=== PATIENT | male | born 1935 | race African-American/Black ===

== ENCOUNTER → 2017-06-14 | Outpatient (CLI) | payer OTHER, MEDICAID ==
[2016-08-07 11:13] VITALS: BP 124/76
--- NOTE | 2017-06-15 11:06 | US ---
HISTORY: Groin pain and swelling Study: Testicular sonogram Comparison: None Technique: Multiple grayscale sonographic images were obtained. Limited Doppler evaluation was perfor med. Findings: The right testicle measured 2.56 x 2.54 x 2.5 cm. No intratesticular masses are identified. The epidi dymis is normal. No hydrocele is identified. The left testicle measured 3.2 x 2.2 x 2.1 cm. No intrat esticular masses are identified. The epididymis was normal. No hydrocele is present. There is soft ti ssue prominence in the superior scrotum above the testes bilaterally. This could represent edema or l ess likely but not impossible herniated bowel or fat. CT is recommended in order to evaluate for ingu inal hernias as a cause of the patient's symptoms. IMPRESSION: No evidence for testicular torsion, mass, or epididymitis Questionable edematous soft tissue, fat, or bowel in the superior aspect of the scrotal sac bilateral ly. Hernias cannot be entirely excluded on the basis of this examination. CT would be of further diag nostic value in determining if hernia may be the cause of the patient's groin pain. Reported By:
== END | disposition home or self-care (01) ==
LOC: RAD 12:10
PROVIDERS: ATTEND Internal Medicine
DX: R10.30 Lower abdominal pain, unspecified (principal); N50.89 Other specified disorders of the male genital organs
CPT/HCPCS: 76870

== ENCOUNTER → 2017-06-17 | Outpatient (CLI) | payer OTHER, MEDICAID ==
[2016-08-07 11:13] VITALS: BP 124/76
--- NOTE | 2017-06-17 15:20 | CT ---
HISTORY: Groin pain, abnormal testicular ultrasound on 06/14/2017 Study: CT abdomen and pelvis without IV contrast Comparison: 05/19/2016 Technique: Multiple axial images of the abdomen and pelvis were obtained from the lung bases to the pubic symphy sis without the administration of IV contrast. Oral contrast materials were given. Coronal and sagitt al images are also reviewed. Dose reduction techniques utilized automatic exposure control. Findings: There are bilateral pleural effusions, larger on the right side. Some compressive atelectasis is pres ent in both lung bases. 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 There are heavy calcifications present within the left coronary and right coronary art eries. There is cardiomegaly. Changes of subcutaneous edema present involving the lower chest, abdome n and pelvic valera. The liver, spleen, right kidney and adrenal glands are unremarkable in their CT a ppearance. The pancreas is exceedingly thickened. The gallbladder is unremarkable in its CT appearanc e. There is a simple cyst in the upper pole of the left kidney, unchanged from prior studies. No vinicio d mass, stone or hydronephrosis is seen. There are changes of mesenteric and retroperitoneal adenopat hy. These findings appear to have developed since the patient's prior study. No evidence of ascites o r free intraperitoneal air is seen. The mesentery appears edematous, but this may be a product of the generalized anasarca process.. There is a 3.3 cm soft tissue density present in the left groin with a low-density, likely fluid center. This is much smaller than on prior studies. This may be a small residual of the prior abscess in this region. Mixed fatty and fluid densities are present in the lowe r flank regions bilaterally. These appear to represent amorphous collections related to the patient's edema.. The urinary bladder is grossly unremarkable. There is prostatic enlargement. Multilevel deg enerative changes are present involving the lumbar spine. The scrotum appears markedly edematous. IMPRESSION: There are findings of anasarca with bilateral pleural effusions. There are changes of subcutaneous ed mely involving the lower chest, abdomen and pelvic valera. Mixed edematous and fatty changes are presen t in the lower flank regions bilaterally. Compressive atelectasis in the lung bases. Small ,solid mass formation present involving the left groin region. This displays a central fluid co re. This measures about 3.3 cm in diameter and is significantly smaller than on the patient's prior s tudies. This may be all that is left of the abscess seen in the region on prior studies. Markedly edematous scrotum. Reported By:
== END | disposition home or self-care (01) ==
LOC: RAD 08:54
PROVIDERS: ATTEND Internal Medicine
DX: R10.30 Lower abdominal pain, unspecified (principal); J18.2 Hypostatic pneumonia, unspecified organism; J91.8 Pleural effusion in other conditions classified elsewhere; J90 Pleural effusion, not elsewhere classified; J98.11 Atelectasis; R22.9 Localized swelling, mass and lump, unspecified; N50.89 Other specified disorders of the male genital organs; R60.0 Localized edema
CPT/HCPCS: 74176

== ENCOUNTER 2017-06-18 13:36 | Inpatient (IN) | payer OTHER, MEDICAID ==
[2017-06-18] MEDS ORDERED: HumuLIN R SUBCUT PRN (13:40)
[2017-06-18 16:20] VITALS: BMI 27.2
[2017-06-18 17:37] LABS: BASOPHILS # (AUTO) 0.1 X10^3/uL (0.0-0.1); BASOPHILS % (AUTO) 0.8 % (0.2-1.0); EOSINOPHILS # (AUTO) 0.2 x10^3/uL (0.0-0.2); EOSINOPHILS % (AUTO) 2.4 % (0.9-2.9); HEMATOCRIT 32.5 % (42.0-54.0); HEMOGLOBIN 10.9 g/dL (13.5-18.0); LYMPHOCYTES # (AUTO) 1.4 X10^3/uL (1.3-2.9); LYMPHOCYTES % (AUTO) 20.6 % (21.0-51.0); MEAN CORPUSCULAR HEMOGLOBIN 31.7 pg (27.0-34.0); MEAN CORPUSCULAR HGB CONC 33.6 g/dL (33.0-35.0); MEAN CORPUSCULAR VOLUME 94.3 fL (80.0-100.0); MONOCYTES # (AUTO) 0.9 x10^3/uL (0.3-0.8); MONOCYTES % (AUTO) 14.1 % (0.0-13.0); NEUTROPHILS # (AUTO) 4.1 x10^3/uL (2.2-4.8); NEUTROPHILS % (AUTO) 62.1 % (42.0-75.0); PLATELET COUNT 185 X10^3/uL (150.0-450.0); RED BLOOD COUNT 3.45 X10^6/uL (4.7-6.0); RED CELL DISTRIBUTION WIDTH 14.2 % (11.6-16.5); WHITE BLOOD COUNT 6.6 X10^3/uL (3.6-10.0)
[2017-06-18 17:51] LABS: ALBUMIN 2.7 g/dL (3.4-5.0); CALCIUM 8.7 mg/dL (8.5-10.1); CARBON DIOXIDE 24.2 mmol/L (21-32); COR CA(FOR HYPOALB) 9.7 mg/dL (8.5-10.1); CREATININE 2.5 mg/dL (0.70-1.30); TOTAL PROTEIN 6.8 g/dL (6.4-8.2)
[2017-06-18] MEDS: LASIX IVP SCH (22:47)
[2017-06-19 06:09] LABS: BASOPHILS % (AUTO) 0.8 % (0.2-1.0); EOSINOPHILS # (AUTO) 0.1 x10^3/uL (0.0-0.2); EOSINOPHILS % (AUTO) 2.7 % (0.9-2.9); HEMOGLOBIN 10.9 g/dL (13.5-18.0); LYMPHOCYTES # (AUTO) 1.2 X10^3/uL (1.3-2.9); LYMPHOCYTES % (AUTO) 22.7 % (21.0-51.0); MEAN CORPUSCULAR HEMOGLOBIN 32.2 pg (27.0-34.0); MEAN CORPUSCULAR HGB CONC 33.9 g/dL (33.0-35.0); MEAN PLATELET VOLUME 7.6 fL (7.4-11.0); MONOCYTES # (AUTO) 0.7 x10^3/uL (0.3-0.8); MONOCYTES % (AUTO) 12.7 % (0.0-13.0); NEUTROPHILS # (AUTO) 3.2 x10^3/uL (2.2-4.8); NEUTROPHILS % (AUTO) 61.1 % (42.0-75.0); PLATELET COUNT 180 X10^3/uL (150.0-450.0); RED BLOOD COUNT 3.37 X10^6/uL (4.7-6.0); RED CELL DISTRIBUTION WIDTH 13.9 % (11.6-16.5); WHITE BLOOD COUNT 5.2 X10^3/uL (3.6-10.0)
[2017-06-19 06:21] LABS: ALANINE AMINOTRANSFERASE 22 Units/L (12-78); ALBUMIN 2.5 g/dL (3.4-5.0); ALKALINE PHOSPHATASE 65 Units/L (46-116); ASPARTATE AMINO TRANSFERASE 23 Units/L (15-37); BLOOD UREA NITROGEN 52 mg/dL (7-18); CALCIUM 8.9 mg/dL (8.5-10.1); CARBON DIOXIDE 23.4 mmol/L (21-32); CHLORIDE 112 mmol/L (98-107); COR CA(FOR HYPOALB) 10.1 mg/dL (8.5-10.1); CREATININE 2.31 mg/dL (0.70-1.30); SODIUM 145 mmol/L (136-145); TOTAL PROTEIN 6.4 g/dL (6.4-8.2); eGFR BLACK RACES 35 (>60); eGFR NON BLACK RACES 29 (>60)
[2017-06-19] MEDS: ALBUMIN HUMAN 25%- 100ML 100 ML IV SCH (09:24)
[2017-06-19] MEDS: LASIX IVP SCH ×2 (09:25→20:42)
[2017-06-19] MEDS ORDERED: COLACE CAP 100 MG PO PRN (22:38)
[2017-06-20 05:37] LABS: ALANINE AMINOTRANSFERASE 22 Units/L (12-78); ALBUMIN 2.7 g/dL (3.4-5.0); ALKALINE PHOSPHATASE 60 Units/L (46-116); ASPARTATE AMINO TRANSFERASE 22 Units/L (15-37); BLOOD UREA NITROGEN 46 mg/dL (7-18); CALCIUM 8.7 mg/dL (8.5-10.1); CHLORIDE 111 mmol/L (98-107); COR CA(FOR HYPOALB) 9.7 mg/dL (8.5-10.1); CREATININE 2.21 mg/dL (0.70-1.30); SODIUM 146 mmol/L (136-145); TOTAL PROTEIN 6.3 g/dL (6.4-8.2); eGFR BLACK RACES 37 (>60); eGFR NON BLACK RACES 30 (>60)
[2017-06-20 05:45] LABS: BASOPHILS # (AUTO) 0.1 X10^3/uL (0.0-0.1); EOSINOPHILS # (AUTO) 0.2 x10^3/uL (0.0-0.2); EOSINOPHILS % (AUTO) 3.2 % (0.9-2.9); HEMATOCRIT 31.4 % (42.0-54.0); HEMOGLOBIN 10.9 g/dL (13.5-18.0); LYMPHOCYTES # (AUTO) 1.1 X10^3/uL (1.3-2.9); LYMPHOCYTES % (AUTO) 20.8 % (21.0-51.0); MEAN CORPUSCULAR HEMOGLOBIN 32.8 pg (27.0-34.0); MEAN CORPUSCULAR HGB CONC 34.9 g/dL (33.0-35.0); MEAN PLATELET VOLUME 7.5 fL (7.4-11.0); MONOCYTES # (AUTO) 0.7 x10^3/uL (0.3-0.8); MONOCYTES % (AUTO) 13.3 % (0.0-13.0); NEUTROPHILS # (AUTO) 3.3 x10^3/uL (2.2-4.8); NEUTROPHILS % (AUTO) 61.7 % (42.0-75.0); PLATELET COUNT 168 X10^3/uL (150.0-450.0); RED BLOOD COUNT 3.34 X10^6/uL (4.7-6.0); RED CELL DISTRIBUTION WIDTH 13.5 % (11.6-16.5); WHITE BLOOD COUNT 5.4 X10^3/uL (3.6-10.0)
[2017-06-20] MEDS: VOLTAREN 1 % GEL MULTI DOSE TUBE TOP SCH ×3 (05:54→23:11)
[2017-06-20] MEDS ORDERED: GLUCOPHAGE PO SCH ×2 (07:00→10:00)
[2017-06-20] MEDS ORDERED: PEPCID TAB 20 MG PO SCH ×2 (09:00→21:00)
[2017-06-20] MEDS ORDERED: COLACE CAP 100 MG PO PRN (09:13)
[2017-06-20] MEDS ORDERED: ULTRAM PO PRN (09:13)
[2017-06-20] MEDS ORDERED: ZESTRIL TAB 5 MG PO SCH (09:15)
[2017-06-20] MEDS: ALBUMIN HUMAN 25%- 100ML 100 ML IV SCH (10:00)
[2017-06-20] MEDS ORDERED: MOBIC TAB 15 MG PO SCH (10:00)
[2017-06-20] MEDS ORDERED: LOPRESSOR TAB 25 MG PO SCH (10:00)
[2017-06-20] MEDS ORDERED: NORVASC TAB 10 MG PO SCH (10:00)
[2017-06-20] MEDS ORDERED: EFFEXOR XR 37.5 MG CAP PO SCH (10:00)
[2017-06-20] MEDS: MICRO K EXTEN CAP 10 MEQ PO SCH (10:01)
[2017-06-20] MEDS: LASIX IVP SCH ×2 (10:01→20:56)
[2017-06-20] MEDS: ZESTRIL TAB 5 MG PO SCH (10:02)
[2017-06-20] MEDS: MOBIC TAB 15 MG PO SCH (10:02)
[2017-06-20] MEDS: EFFEXOR XR 37.5 MG CAP PO SCH (10:02)
[2017-06-20] MEDS: TAB-A-VITE PO SCH (10:02)
[2017-06-20] MEDS: PEPCID TAB 20 MG PO SCH (10:02)
[2017-06-20] MEDS: LOPRESSOR TAB 25 MG PO SCH ×2 (10:03→20:55)
[2017-06-20] MEDS: NORVASC TAB 10 MG PO SCH (10:03)
[2017-06-20] MEDS: CIPRO TAB 500 MG PO SCH ×2 (10:05→21:00)
[2017-06-20] MEDS ORDERED: VOLTAREN 1 % GEL MULTI DOSE TUBE EXT SCH (14:00)
[2017-06-20] MEDS: ULTRAM PO PRN (20:55)
[2017-06-20] MEDS: NEURONTIN CAP 300 MG PO SCH (20:55)
[2017-06-20] MEDS ORDERED: MIRALAX POWDER (1 DOSE 17GM) PO SCH (21:00)
[2017-06-20] MEDS ORDERED: PROTEIN HYDROLYS PO SCH (21:00)
[2017-06-20] MEDS ORDERED: [UNRECOGNIZED DRUG - OTHER] PO SCH (21:00)
[2017-06-20] MEDS ORDERED: NEURONTIN CAP 300 MG PO SCH (21:00)
[2017-06-20] MEDS ORDERED: ELDERTONIC + WINE PO SCH (21:00)
[2017-06-20] MEDS ORDERED: AMINO ACIDS PO SCH (21:00)
[2017-06-20] MEDS: MIRALAX POWDER (1 DOSE 17GM) PO SCH (23:11)
[2017-06-20] MEDS: ELDERTONIC + WINE PO SCH (23:13)
[2017-06-21] MEDS: VOLTAREN 1 % GEL MULTI DOSE TUBE TOP SCH ×3 (05:38→22:42)
[2017-06-21 05:49] LABS: ALANINE AMINOTRANSFERASE 19 Units/L (12-78); ALBUMIN 2.6 g/dL (3.4-5.0); ALKALINE PHOSPHATASE 56 Units/L (46-116); ASPARTATE AMINO TRANSFERASE 22 Units/L (15-37); BLOOD UREA NITROGEN 42 mg/dL (7-18); CALCIUM 8.5 mg/dL (8.5-10.1); CARBON DIOXIDE 27.7 mmol/L (21-32); CHLORIDE 109 mmol/L (98-107); COR CA(FOR HYPOALB) 9.6 mg/dL (8.5-10.1); CREATININE 2.09 mg/dL (0.70-1.30); SODIUM 145 mmol/L (136-145); eGFR BLACK RACES 39 (>60); eGFR NON BLACK RACES 32 (>60)
[2017-06-21 05:53] LABS: BASOPHILS % (AUTO) 0.6 % (0.2-1.0); EOSINOPHILS # (AUTO) 0.2 x10^3/uL (0.0-0.2); EOSINOPHILS % (AUTO) 2.9 % (0.9-2.9); HEMATOCRIT 29.6 % (42.0-54.0); HEMOGLOBIN 10.2 g/dL (13.5-18.0); LYMPHOCYTES # (AUTO) 1.4 X10^3/uL (1.3-2.9); LYMPHOCYTES % (AUTO) 25.1 % (21.0-51.0); MEAN CORPUSCULAR HEMOGLOBIN 32.1 pg (27.0-34.0); MEAN CORPUSCULAR HGB CONC 34.3 g/dL (33.0-35.0); MEAN CORPUSCULAR VOLUME 93.7 fL (80.0-100.0); MEAN PLATELET VOLUME 7.5 fL (7.4-11.0); MONOCYTES # (AUTO) 0.8 x10^3/uL (0.3-0.8); MONOCYTES % (AUTO) 14.7 % (0.0-13.0); NEUTROPHILS # (AUTO) 3.1 x10^3/uL (2.2-4.8); NEUTROPHILS % (AUTO) 56.7 % (42.0-75.0); PLATELET COUNT 153 X10^3/uL (150.0-450.0); RED BLOOD COUNT 3.16 X10^6/uL (4.7-6.0); RED CELL DISTRIBUTION WIDTH 13.8 % (11.6-16.5); WHITE BLOOD COUNT 5.4 X10^3/uL (3.6-10.0)
--- NOTE | 2017-06-21 07:51 | RAD ---
HISTORY: Congestive heart failure, shortness of breath Study: Chest AP portable Comparison: 06/20/2017 Findings: The patient is rotated to the left. The heart is enlarged. Mild pulmonary venous congestion is presen t. No interstitial or alveolar edema or alveolar infiltrates are present. Bilateral pleural effusions are present right greater than left. IMPRESSION: Cardiomegaly with pulmonary venous congestion Bilateral pleural effusions right greater than left, stable Reported By:
[2017-06-21] MEDS ORDERED: MICRO K EXTEN CAP 10 MEQ PO SCH (09:00)
[2017-06-21] MEDS ORDERED: TAB-A-VITE PO SCH (09:00)
[2017-06-21] MEDS: NORVASC TAB 10 MG PO SCH (09:00)
[2017-06-21] MEDS: MOBIC TAB 15 MG PO SCH (09:22)
[2017-06-21] MEDS: TAB-A-VITE PO SCH (09:22)
[2017-06-21] MEDS: PEPCID TAB 20 MG PO SCH (09:22)
[2017-06-21] MEDS: MICRO K EXTEN CAP 10 MEQ PO SCH (09:23)
[2017-06-21] MEDS: LASIX IVP SCH ×2 (09:23→22:39)
[2017-06-21] MEDS: LOPRESSOR TAB 25 MG PO SCH ×2 (09:23→22:40)
[2017-06-21] MEDS: ZESTRIL TAB 5 MG PO SCH (09:23)
[2017-06-21] MEDS: CIPRO TAB 500 MG PO SCH ×2 (09:24→22:40)
[2017-06-21] MEDS: ALBUMIN HUMAN 25%- 100ML 100 ML IV SCH (09:24)
[2017-06-21] MEDS: EFFEXOR XR 37.5 MG CAP PO SCH (09:24)
--- NOTE | 2017-06-21 11:02 | DR.H&P ---
H&P - History & Physical for Day of: H&P Date: 06/18/17 - Chief Complaint Chief Complaint: SHORTNESS OF BREATH, SWOLLEN SCROTUM - Allergies Allergies/Adverse Reactions: Allergies Allergy/AdvReac Type Severity Reaction Status Date / Time No Known Drug Allergies Allergy Verified 06/18/17 13:47 - History of Present Illness History of Present Illness: IS A 82 YEAR OLD PATIENT OF OURS. HE RESIDES AT [facility]. HE WAS A DIRECT ADMISSION FROM [facility] FOR COMPLAINTS OF SHORTNESS OF BREATH AND GENERALIZED EDEMA. ON EXAMINATION, LUNGS WERE NOTED WITH WHEEZING BILATERALLY TO AUSCULTATION. ABDOMEN IS SOFT, ROUND, AND NON-TENDER WITH NORMAL BOWEL SOUNDS NOTED IN ALL QUADRANTS. SCROTUM IS NOTED WITH MODERATE EDEMA. BILATERALY LOWER EXTREMITIES NOTED WITH 1+ PITTING EDEMA. ON ADMISSION, VITAL SIGNS WERE 97.8-62-18-95%-121/69. WE OBTAINED A CBC, CMP, AND EKG ON ADMISSION. ABNORMAL LAB VALUES INCLUDE THE FOLLOWING: RBC 3.45, HGB 10.9, HCT 32.5, CHLORIDE 111, BUN 54, CREATININE 2.50, GLUCOSE 124, ALBUMIN 2.7. YESTERDAY, AN OUTPATIENT CT ABD/PELVIS WAS OBTAINED. IT REPORTED ANASARCA WITH BILATERAL PLEURAL EFFUSIONS. CHANGES OF SUBCUTANEOUS EDEMA INVOLVING THE LOWER CHEST, ABDOMEN, AND PELVIC OLIVERA. MIXED EDEMATOUS AND FATTY CHANGES PRESENT IN THE LOWER FLANK REGIONS BILATERALLY. COMPRESSIVE ATELECTASIS IN THE LUNG BASES. SMALL, SOLID MASS FORMATION PRESENT INVOLVING THE LEFT GROIN REGION. THIS DISPLAYS A CENTRAL FLUID CORE. THIS MEASURES ABOUT 3.3 CM IN DIAMETER AND IS SIGNIFICANTLY SMALLER THAN ON THE PATIENT'S PRIOR STUDIES. THIS MAY BE ALL THAT IS LEFT OF THE ABSCESS SEEN IN THE REGION ON PRIOR STUDIES. MARKEDLY EDEMATOUS SCROTUM. PATIENT WAS STARTED ON LASIX 40MG IV BID AND HOME MEDICATIONS WERE RESUMED. WE PLANNED TO FOLLOW UP WITH AM LABS AND CHEST XRAY AND CONTINUE TO MONITOR PATIENT. - Past Medical History Past Medical History: Arthritis, CHF, Dementia, Diabetes, Hypertension Additional Medical History: Muscle Weakness - Past Surgical History Surgical History: Other Additional Surgical History: Chest tube, Hernia Repair - Family History Family Medical History: Cancer - Social History Does patient currently use any type of tobacco product: No Have you used tobacco products in the last 12 months: No Type of Tobacco Use: None Does any household member use tobacco: No Alcohol Use: None Drug Use: None - Medications Home Medications: Amino Acids/Protein Hydrolys [Liquacel 100 Liquid Packet] 1 oz PO BID 06/18/17 [ History Confirmed 06/18/17] Ciprofloxacin HCl [CIPRO 500 MG TAB *] 500 mg PO Q12H 06/18/17 [History Confirmed 06/18/17] Diclofenac Sodium (Topical) [Voltaren 1 % Gel Multi Dose Tube] 1 applic EXT TID 06/18/17 [History Confirmed 06/18/17] Docusate Sodium [COLACE CAP 100 MG *] 100 mg PO BID PRN 06/18/17 [History Confirmed 06/18/17] Gabapentin [Neurontin Cap 300 mg] 300 mg PO HS 06/18/17 [History Confirmed 06/18] Lisinopril [ZESTRIL *] 5 mg PO DAILY 06/18/17 [History Confirmed 06/18/17] Meloxicam [Mobic Tab 15 mg] 15 mg PO DAILY 06/18/17 [History Confirmed 06/18/17] Metoprolol Tartrate [Lopressor Tab 25 mg] 25 mg PO BID 06/18/17 [History Confirmed 06/18/17] [place] Tonic 30 ml [Eldertonic + Wine] 30 ml PO HS 06/18/17 [History Confirmed 06/18/17] Venlafaxine HCl [Venlafaxine HCl ER] 37.5 mg PO DAILY 06/18/17 [History Confirmed 06/18/17] - Review of Systems Constitutional: Weakness Eyes: No Symptoms Reported ENT: No Symptoms Reported Respiratory: Shortness of Breath, Wheezing Cardiovascular: Edema Gastrointestinal: No Symptoms Reported Genitourinary: No Symptoms Reported Musculoskeletal: No Symptoms Reported Skin: No Symptoms Reported Neurological: Weakness - Physical Exam Vital Signs: Temperature 99 F Pulse Rate [Right Brachial] 72 Pulse Rate [Left Radial] 66 Respiratory Rate 20 Blood Pressure [Right Arm] 115/68 Blood Pressure [Left Arm] 126/62 Blood Pressure 124/76 O2 Sat by Pulse Oximetry 97 Oriented: Normal Eyes: Normal Ear: Normal Nose: Normal Throat: Normal Respiratory: Wheezes Throughout Cardiovascular: Edema (SCROTUM EDEMA ) : Normal Auscultation: Bowel Sounds: Normal Palpation: Normal Tenderness: Normal Skin: Normal Musculoskeletal: Normal Psychiatric: Normal Mood Description: Calm Affect: Normal Speech Pattern: Clear - Assessment/Plan (1) CHF (congestive heart failure) Qualifiers: Congestive heart failure type: unspecified congestive heart failure type Congestive heart failure chronicity: unspecified congestive heart failure chronicity Qualified Code(s): I50.9 - Heart failure, unspecified Status: Chronic Plan: LASIX 40MG IV BID, CONTINUE TO MONITOR (2) Anasarca Status: Acute Plan: LASIX 40MG IV BID, CONTINUE TO MONITOR
[2017-06-21] MEDS: SNACK - Diabetic Appropriate PO SCH (20:30)
--- NOTE | 2017-06-21 21:30 | PCM.PROG ---
Progress Note - Progress Note for Day of Date: 06/21/17 - Subjective Subjective: WAS ADMITTED FOR CHF AND ANASARCA. TODAY, HE IS ALERT AND ORIETED, LYING IN BED ON MORNING ROUNDS. HE IS NOTED WITH COMPLAINTS OF SHORTNESS OF BREATH AND SCROTUM EDEMA. ON EXAMINATION, LUNG SOUNDS ARE DIMINISHED. ABDOMEN IS SOFT, ROUND, AND NON-TENDER. MARKED EDEMA TO SCROTUM CONTINUES. THERE IS 1+ PITTING EDEMA TO BILATERAL LOWER EXTREMITIES. HIS VITAL SIGNS THIS MORNING ARE 98.6, 66-20-97%-127/66. A CBC, CMP, AND CHEST XRAY WERE OBTAINED TODAY. ABNORMAL LAB VALUES INCLUDE THE FOLLOWING: RBC 3.16, HGB 10.2, HCT 29.6, CHLORIDE 109, BUN 42, CREATININE 2.09, TOTAL PROTEIN 6.0, ALBUMIN 2.6. TODAYS CHEST XRAY REPORTED CARDIOMEGALY WITH PULMONARY VENOUS CONGESTION, BILATERAL PLEURAL EFFUSIONS RIGHT GREATER THAN LEFT, STABLE. TODAY, WE WILL START ALBUMIN 25% 2 BAGS DAILY. OTHERWISE, WE WILL CONTINUE WITH CURRENT PLAN OF CARE. WE PLAN TO FOLLOW UP WITH AM LABS AND CONTINUE TO MONITOR PATIENT. - Past Medical Family Social History Past Med/Fam/Surg Hx: No changes since H&P Allergies: Allergies No Known Drug Allergies Allergy (Verified 06/18/17 13:47) - Review of Systems ROS: No change since H&P - Vital Signs and I&O's Vital Signs: Temperature 98.5 F Pulse Rate [Right Brachial] 68 Pulse Rate [Left Radial] 66 Respiratory Rate 18 Blood Pressure [Right Arm] 130/63 Blood Pressure [Left Arm] 132/75 Blood Pressure 124/76 O2 Sat by Pulse Oximetry 96 Intake and Output: Intake & Output 06/19/17 06/20/17 06/21/17 06/22/17 11:59 11:59 11:59 11:59 Intake Total 919 341 2700 720 Output Total 600 325 300 Balance -340 557 3140 420 - Physical Exam Oriented: Normal Eyes: Normal Ear: Normal Nose: Normal Throat: Normal Respiratory: Diminished Cardiovascular: Edema (SCROTUM EDEMA ) : Normal Auscultation: Bowel Sounds: Normal Palpation: Normal Tenderness: Normal Skin: Normal Musculoskeletal: Normal Psychiatric: Normal Mood Description: Calm Affect: Normal Speech Pattern: Clear - Laboratory and Diagnostics Result Diagrams: 06/22/17 04:00 06/22/17 04:00 Labs: Laboratory WBC 5.4 X10^3/uL (3.6-10.0) 06/21/17 05:10 RBC 3.16 X10^6/uL (4.7-6.0) L 06/21/17 05:10 Hgb 10.2 g/dL (13.5-18.0) L 06/21/17 05:10 Hct 29.6 % (42.0-54.0) L 06/21/17 05:10 MCV 93.7 fL (80.0-100.0) 06/21/17 05:10 MCH 32.1 pg (27.0-34.0) 06/21/17 05:10 MCHC 34.3 g/dL (33.0-35.0) 06/21/17 05:10 RDW 13.8 % (11.6-16.5) 06/21/17 05:10 Plt Count 153 X10^3/uL (150.0-450.0) 06/21/17 05:10 MPV 7.5 fL (7.4-11.0) 06/21/17 05:10 Neut % 56.7 % (42.0-75.0) 06/21/17 05:10 Lymph % 25.1 % (21.0-51.0) 06/21/17 05:10 Harrison % 14.7 % (0.0-13.0) H 06/21/17 05:10 Eos % 2.9 % (0.9-2.9) 06/21/17 05:10 Baso % 0.6 % (0.2-1.0) 06/21/17 05:10 Neut # 3.1 x10^3/uL (2.2-4.8) 06/21/17 05:10 Lymph # 1.4 X10^3/uL (1.3-2.9) 06/21/17 05:10 Harrison # 0.8 x10^3/uL (0.3-0.8) 06/21/17 05:10 Eos # 0.2 x10^3/uL (0.0-0.2) 06/21/17 05:10 Baso # 0.0 X10^3/uL (0.0-0.1) 06/21/17 05:10 Absolute Nucleated RBC 0.1 /100WBC 06/21/17 05:10 Sodium 145 mmol/L (136-145) 06/21/17 05:10 Corrected Sodium TNP 06/21/17 05:10 Potassium 4.0 mmol/L (3.5-5.1) 06/21/17 05:10 Chloride 109 mmol/L (98-107) H 06/21/17 05:10 Carbon Dioxide 27.7 mmol/L (21-32) 06/21/17 05:10 BUN 42 mg/dL (7-18) H 06/21/17 05:10 Creatinine 2.09 mg/dL (0.70-1.30) H 06/21/17 05:10 Est GFR (MDRD) Af Amer 39 (>60) L 06/21/17 05:10 Est GFR (MDRD) Non-Af 32 (>60) L 06/21/17 05:10 Glucose 86 mg/dL (65-99) 06/21/17 05:10 POC Glucose (mg/dL) 165 mg/dL (65-99) H 06/21/17 17:07 Calcium 8.5 mg/dL (8.5-10.1) 06/21/17 05:10 Corrected Calcium 9.6 mg/dL (8.5-10.1) 06/21/17 05:10 Total Bilirubin 0.40 mg/dL (0.2-1.0) 06/21/17 05:10 AST 22 Units/L (15-37) 06/21/17 05:10 ALT 19 Units/L (12-78) 06/21/17 05:10 Alkaline Phosphatase 56 Units/L (46-116) 06/21/17 05:10 Total Protein 6.0 g/dL (6.4-8.2) L 06/21/17 05:10 Albumin 2.6 g/dL (3.4-5.0) L 06/21/17 05:10 Globulin 3.4 g/dL (2.5-4.5) 06/21/17 05:10 Albumin/Globulin Ratio 0.8 Ratio (1.1-2.1) L 06/21/17 05:10 - Plan (1) CHF (congestive heart failure) Status: Chronic Qualifiers: Congestive heart failure type: unspecified congestive heart failure type Congestive heart failure chronicity: unspecified congestive heart failure chronicity Qualified Code(s): I50.9 - Heart failure, unspecified Plan: LASIX 40MG IV BID, CONTINUE TO MONITOR (2) Anasarca Status: Acute Plan: LASIX 40MG IV BID, ALBUMIN 25% 2 BAGS DAILY, CONTINUE TO MONITOR (3) Pleural effusion Status: Acute Plan: CIPRO 500MG PO BID, CONTINUE TO MONITOR (4) Depression Status: Chronic Qualifiers: Depression Type: major depressive disorder Major depression recurrence: recurrent Active/Remission status: remission status unspecified Qualified Code(s): F33.9 - Major depressive disorder, recurrent, unspecified Plan: CONTINUE EFFEXOR, CONTINUE TO MONITOR (5) Diabetes mellitus, type 2 Status: Chronic Qualifiers: Diabetes mellitus complication status: without complication Diabetes mellitus trades helper insulin use: without senior care use Qualified Code(s): E11.9 - Type 2 diabetes mellitus without complications Plan: CONTINUE TO MONITOR (6) Hypertension Status: Chronic Qualifiers: Hypertension type: essential hypertension Qualified Code(s): I10 - Essential (primary) hypertension Plan: CONTINUE NORVASC, CONTINUE LISINOPRIL, CONTINUE TO MONITOR
[2017-06-21] MEDS: NEURONTIN CAP 300 MG PO SCH (22:40)
[2017-06-21] MEDS: MIRALAX POWDER (1 DOSE 17GM) PO SCH (22:40)
[2017-06-21] MEDS: ELDERTONIC + WINE PO SCH (22:43)
[2017-06-22 05:16] LABS: ALANINE AMINOTRANSFERASE 20 Units/L (12-78); ALBUMIN 2.8 g/dL (3.4-5.0); ALKALINE PHOSPHATASE 53 Units/L (46-116); ASPARTATE AMINO TRANSFERASE 22 Units/L (15-37); BLOOD UREA NITROGEN 39 mg/dL (7-18); CALCIUM 8.4 mg/dL (8.5-10.1); CHLORIDE 108 mmol/L (98-107); COR CA(FOR HYPOALB) 9.4 mg/dL (8.5-10.1); CREATININE 2.21 mg/dL (0.70-1.30); SODIUM 144 mmol/L (136-145); TOTAL PROTEIN 6.1 g/dL (6.4-8.2); eGFR BLACK RACES 37 (>60); eGFR NON BLACK RACES 30 (>60)
[2017-06-22 05:31] LABS: BASOPHILS % (AUTO) 0.6 % (0.2-1.0); EOSINOPHILS # (AUTO) 0.1 x10^3/uL (0.0-0.2); EOSINOPHILS % (AUTO) 2.2 % (0.9-2.9); HEMATOCRIT 29.5 % (42.0-54.0); HEMOGLOBIN 10.1 g/dL (13.5-18.0); LYMPHOCYTES # (AUTO) 1.4 X10^3/uL (1.3-2.9); LYMPHOCYTES % (AUTO) 23.9 % (21.0-51.0); MEAN CORPUSCULAR HGB CONC 34.2 g/dL (33.0-35.0); MEAN CORPUSCULAR VOLUME 93.5 fL (80.0-100.0); MEAN PLATELET VOLUME 7.6 fL (7.4-11.0); MONOCYTES # (AUTO) 0.9 x10^3/uL (0.3-0.8); MONOCYTES % (AUTO) 15.8 % (0.0-13.0); NEUTROPHILS # (AUTO) 3.5 x10^3/uL (2.2-4.8); NEUTROPHILS % (AUTO) 57.5 % (42.0-75.0); PLATELET COUNT 151 X10^3/uL (150.0-450.0); RED BLOOD COUNT 3.16 X10^6/uL (4.7-6.0); RED CELL DISTRIBUTION WIDTH 13.6 % (11.6-16.5)
[2017-06-22] MEDS: VOLTAREN 1 % GEL MULTI DOSE TUBE TOP SCH ×3 (06:14→21:19)
[2017-06-22] MEDS: MOBIC TAB 15 MG PO SCH (09:15)
[2017-06-22] MEDS: LOPRESSOR TAB 25 MG PO SCH ×2 (09:15→20:50)
[2017-06-22] MEDS: CIPRO TAB 500 MG PO SCH ×2 (09:15→21:19)
[2017-06-22] MEDS: LASIX IVP SCH (09:15)
[2017-06-22] MEDS: PEPCID TAB 20 MG PO SCH (09:15)
[2017-06-22] MEDS: ZESTRIL TAB 5 MG PO SCH (09:16)
[2017-06-22] MEDS: NORVASC TAB 10 MG PO SCH (09:16)
[2017-06-22] MEDS: EFFEXOR XR 37.5 MG CAP PO SCH (09:16)
[2017-06-22] MEDS: TAB-A-VITE PO SCH (09:16)
[2017-06-22] MEDS: MICRO K EXTEN CAP 10 MEQ PO SCH (09:16)
[2017-06-22] MEDS: ALBUMIN HUMAN 25%- 100ML 200 ML IV SCH (09:17)
[2017-06-22] MEDS: ULTRAM PO PRN (09:22)
--- NOTE | 2017-06-22 09:50 | PCM.PROG ---
Progress Note - Progress Note for Day of Date: 06/22/17 - Subjective Subjective: WAS ADMITTED FOR CHF AND ANASARCA. TODAY, HE IS ALERT AND ORIETED, SITTING UP IN BED ON MORNING ROUNDS. HE IS EATING BREAKFAST. HE CONTINUES WITH COMPLAINTS OF SHORTNESS OF BREATH AND SCROTUM EDEMA. ON EXAMINATION, LUNG SOUNDS ARE DIMINISHED. ABDOMEN IS SOFT, ROUND, AND NON- TENDER. MARKED EDEMA TO SCROTUM CONTINUES. EDEMA TO BILATERAL LOWER EXTREMITIES HAS IMPROVED SOME SINCE YESTERDAY. HIS VITAL SIGNS THIS MORNING ARE 98.6-75-20- 97%-130/73. A CBC, CMP, AND CHEST XRAY WERE OBTAINED TODAY. ABNORMAL LAB VALUES INCLUDE THE FOLLOWING: RBC 3.16, HGB 10.1, HCT 29.5, CHLORIDE 108, BUN 39, CREATININE 2.21, CALCIUM 8.4, TOTAL PROTEIN 6.1, ALBUMIN 2.8. A READING FOR TODAYS CHEST XRAY IS PENDING. TODAY, WE WILL CONTINUE WITH CURRENT PLAN OF CARE. OTHERWISE, WE PLAN TO FOLLOW UP WITH AM LABS AND CONTINUE TO MONITOR PATIENT. - Past Medical Family Social History Past Med/Fam/Surg Hx: No changes since H&P Allergies: Allergies No Known Drug Allergies Allergy (Verified 06/18/17 13:47) - Review of Systems ROS: No change since H&P - Vital Signs and I&O's Vital Signs: Temperature 98.3 F Pulse Rate [Right Brachial] 75 Pulse Rate [Left Radial] 67 Respiratory Rate 20 Blood Pressure [Right Arm] 130/73 Blood Pressure [Left Arm] 137/58 Blood Pressure 124/76 O2 Sat by Pulse Oximetry 93 Intake and Output: Intake & Output 06/19/17 06/20/17 06/21/17 06/22/17 11:59 11:59 11:59 11:59 Intake Total 983 302 1178 1320 Output Total 706 505 8463 Balance -493 027 4242 320 - Physical Exam Oriented: Normal Eyes: Normal Ear: Normal Nose: Normal Throat: Normal Respiratory: Diminished Cardiovascular: Edema (SCROTUM EDEMA ) : Normal Auscultation: Bowel Sounds: Normal Palpation: Normal Tenderness: Normal Skin: Normal Musculoskeletal: Normal Psychiatric: Normal Mood Description: Calm Affect: Normal Speech Pattern: Clear, Appropriate - Laboratory and Diagnostics Result Diagrams: 06/22/17 04:00 06/22/17 04:00 Labs: Laboratory WBC 6.0 X10^3/uL (3.6-10.0) 06/22/17 04:00 RBC 3.16 X10^6/uL (4.7-6.0) L 06/22/17 04:00 Hgb 10.1 g/dL (13.5-18.0) L 06/22/17 04:00 Hct 29.5 % (42.0-54.0) L 06/22/17 04:00 MCV 93.5 fL (80.0-100.0) 06/22/17 04:00 MCH 32.0 pg (27.0-34.0) 06/22/17 04:00 MCHC 34.2 g/dL (33.0-35.0) 06/22/17 04:00 RDW 13.6 % (11.6-16.5) 06/22/17 04:00 Plt Count 151 X10^3/uL (150.0-450.0) 06/22/17 04:00 MPV 7.6 fL (7.4-11.0) 06/22/17 04:00 Neut % 57.5 % (42.0-75.0) 06/22/17 04:00 Lymph % 23.9 % (21.0-51.0) 06/22/17 04:00 Titus % 15.8 % (0.0-13.0) H 06/22/17 04:00 Eos % 2.2 % (0.9-2.9) 06/22/17 04:00 Baso % 0.6 % (0.2-1.0) 06/22/17 04:00 Neut # 3.5 x10^3/uL (2.2-4.8) 06/22/17 04:00 Lymph # 1.4 X10^3/uL (1.3-2.9) 06/22/17 04:00 Titus # 0.9 x10^3/uL (0.3-0.8) H 06/22/17 04:00 Eos # 0.1 x10^3/uL (0.0-0.2) 06/22/17 04:00 Baso # 0.0 X10^3/uL (0.0-0.1) 06/22/17 04:00 Absolute Nucleated RBC 0.1 /100WBC 06/22/17 04:00 Sodium 144 mmol/L (136-145) 06/22/17 04:00 Corrected Sodium TNP 06/22/17 04:00 Potassium 4.3 mmol/L (3.5-5.1) 06/22/17 04:00 Chloride 108 mmol/L (98-107) H 06/22/17 04:00 Carbon Dioxide 29.0 mmol/L (21-32) 06/22/17 04:00 BUN 39 mg/dL (7-18) H 06/22/17 04:00 Creatinine 2.21 mg/dL (0.70-1.30) H 06/22/17 04:00 Est GFR (MDRD) Af Amer 37 (>60) L 06/22/17 04:00 Est GFR (MDRD) Non-Af 30 (>60) L 06/22/17 04:00 Glucose 93 mg/dL (65-99) 06/22/17 04:00 POC Glucose (mg/dL) 94 mg/dL (65-99) 06/22/17 05:24 Calcium 8.4 mg/dL (8.5-10.1) L 06/22/17 04:00 Corrected Calcium 9.4 mg/dL (8.5-10.1) 06/22/17 04:00 Total Bilirubin 0.40 mg/dL (0.2-1.0) 06/22/17 04:00 AST 22 Units/L (15-37) 06/22/17 04:00 ALT 20 Units/L (12-78) 06/22/17 04:00 Alkaline Phosphatase 53 Units/L (46-116) 06/22/17 04:00 Total Protein 6.1 g/dL (6.4-8.2) L 06/22/17 04:00 Albumin 2.8 g/dL (3.4-5.0) L 06/22/17 04:00 Globulin 3.3 g/dL (2.5-4.5) 06/22/17 04:00 Albumin/Globulin Ratio 0.8 Ratio (1.1-2.1) L 06/22/17 04:00 - Plan (1) CHF (congestive heart failure) Status: Chronic Qualifiers: Congestive heart failure type: unspecified congestive heart failure type Congestive heart failure chronicity: unspecified congestive heart failure chronicity Qualified Code(s): I50.9 - Heart failure, unspecified Plan: CONTINUE TO MONITOR LABS AND CHEST XRAY (2) Anasarca Status: Acute Plan: ALBUMIN 25% 2 BAGS DAILY, CONTINUE TO MONITOR (3) Pleural effusion Status: Acute Plan: CIPRO 500MG PO BID, CONTINUE TO MONITOR (4) Depression Status: Chronic Qualifiers: Depression Type: major depressive disorder Major depression recurrence: recurrent Active/Remission status: remission status unspecified Qualified Code(s): F33.9 - Major depressive disorder, recurrent, unspecified Plan: CONTINUE EFFEXOR, CONTINUE TO MONITOR (5) Diabetes mellitus, type 2 Status: Chronic Qualifiers: Diabetes mellitus complication status: without complication Diabetes mellitus banking services advisor insulin use: without banking services advisor use Qualified Code(s): E11.9 - Type 2 diabetes mellitus without complications Plan: CONTINUE TO MONITOR (6) Hypertension Status: Chronic Qualifiers: Hypertension type: essential hypertension Qualified Code(s): I10 - Essential (primary) hypertension Plan: CONTINUE NORVASC, CONTINUE LISINOPRIL, CONTINUE TO MONITOR
[2017-06-22] MEDS: SNACK - Diabetic Appropriate PO SCH (20:27)
[2017-06-22] MEDS: NEURONTIN CAP 300 MG PO SCH (20:50)
[2017-06-22] MEDS: MIRALAX POWDER (1 DOSE 17GM) PO SCH (20:50)
[2017-06-22] MEDS: ELDERTONIC + WINE PO SCH (21:19)
[2017-06-23 05:18] LABS: BASOPHILS % (AUTO) 0.8 % (0.2-1.0); EOSINOPHILS # (AUTO) 0.1 x10^3/uL (0.0-0.2); EOSINOPHILS % (AUTO) 2.6 % (0.9-2.9); HEMATOCRIT 30.6 % (42.0-54.0); HEMOGLOBIN 10.3 g/dL (13.5-18.0); LYMPHOCYTES # (AUTO) 1.4 X10^3/uL (1.3-2.9); LYMPHOCYTES % (AUTO) 24.8 % (21.0-51.0); MEAN CORPUSCULAR HEMOGLOBIN 31.8 pg (27.0-34.0); MEAN CORPUSCULAR HGB CONC 33.8 g/dL (33.0-35.0); MEAN CORPUSCULAR VOLUME 94.3 fL (80.0-100.0); MEAN PLATELET VOLUME 7.5 fL (7.4-11.0); MONOCYTES # (AUTO) 0.9 x10^3/uL (0.3-0.8); MONOCYTES % (AUTO) 15.4 % (0.0-13.0); NEUTROPHILS # (AUTO) 3.2 x10^3/uL (2.2-4.8); NEUTROPHILS % (AUTO) 56.4 % (42.0-75.0); PLATELET COUNT 149 X10^3/uL (150.0-450.0); RED BLOOD COUNT 3.25 X10^6/uL (4.7-6.0); RED CELL DISTRIBUTION WIDTH 13.5 % (11.6-16.5); WHITE BLOOD COUNT 5.6 X10^3/uL (3.6-10.0)
[2017-06-23 05:29] LABS: ALANINE AMINOTRANSFERASE 17 Units/L (12-78); ALBUMIN 2.9 g/dL (3.4-5.0); ALKALINE PHOSPHATASE 51 Units/L (46-116); ASPARTATE AMINO TRANSFERASE 16 Units/L (15-37); BLOOD UREA NITROGEN 38 mg/dL (7-18); CALCIUM 8.6 mg/dL (8.5-10.1); CHLORIDE 106 mmol/L (98-107); COR CA(FOR HYPOALB) 9.5 mg/dL (8.5-10.1); CREATININE 2.28 mg/dL (0.70-1.30); SODIUM 141 mmol/L (136-145); TOTAL PROTEIN 6.2 g/dL (6.4-8.2); eGFR BLACK RACES 35 (>60); eGFR NON BLACK RACES 29 (>60)
[2017-06-23] MEDS: VOLTAREN 1 % GEL MULTI DOSE TUBE TOP SCH (08:00)
[2017-06-23 08:37] VITALS: BP 131/66
[2017-06-23] MEDS: PEPCID TAB 20 MG PO SCH (09:08)
[2017-06-23] MEDS: ZESTRIL TAB 5 MG PO SCH (09:08)
[2017-06-23] MEDS: TAB-A-VITE PO SCH (09:09)
[2017-06-23] MEDS: MICRO K EXTEN CAP 10 MEQ PO SCH (09:09)
[2017-06-23] MEDS: MOBIC TAB 15 MG PO SCH (09:10)
[2017-06-23] MEDS: NORVASC TAB 10 MG PO SCH (09:10)
[2017-06-23] MEDS: CIPRO TAB 500 MG PO SCH (09:10)
[2017-06-23] MEDS: LOPRESSOR TAB 25 MG PO SCH (09:10)
[2017-06-23] MEDS: EFFEXOR XR 37.5 MG CAP PO SCH (09:10)
[2017-06-23] MEDS: ALBUMIN HUMAN 25%- 100ML 200 ML IV SCH (09:12)
== END 2017-06-23 11:55 | DRG 292 ==
LOC: MED/SURG 13:36
PROVIDERS: ADMIT Internal Medicine; ATTEND Internal Medicine
DX: I50.9 Heart failure, unspecified (principal); R06.02 Shortness of breath; R60.1 Generalized edema; J90 Pleural effusion, not elsewhere classified; F32.89 Other specified depressive episodes; I10 Essential (primary) hypertension; N50.89 Other specified disorders of the male genital organs
CPT/HCPCS: 36415; 71010; 80053; 85025; 93005; A4216; A4222; P9047; J1940

== ENCOUNTER 2017-09-10 18:52 | Inpatient (IN) | payer OTHER, MEDICAID ==
[2017-09-10 21:25] VITALS: BMI 22.7
--- NOTE | 2017-09-10 22:02 | RAD ---
HISTORY: 82-year-old male with severe edema, history of CHF presents with shortness of breath. Study: Frontal view of the chest. Comparison: Chest radiograph 06/23/2017 Findings: The trachea is midline. The cardiac silhouette is stably enlarged with low lung volumes and large ri ght effusion with near complete white out of the right olivier thorax. No pneumothorax.. Soft tissues a re unremarkable. Osseous structures are unremarkable. IMPRESSION: 1. Chronic cardiomegaly with near-complete whiteout of the right olivier thorax with large right effusi on, underlying infection not excluded, correlate clinically. Reported By:
[2017-09-10 22:38] LABS: BASOPHILS % (AUTO) 0.6 % (0.2-1.0); EOSINOPHILS # (AUTO) 0.1 x10^3/uL (0.0-0.2); EOSINOPHILS % (AUTO) 1.8 % (0.9-2.9); HEMATOCRIT 37.2 % (42.0-54.0); HEMOGLOBIN 12.3 g/dL (13.5-18.0); LYMPHOCYTES # (AUTO) 0.9 X10^3/uL (1.3-2.9); LYMPHOCYTES % (AUTO) 15.2 % (21.0-51.0); MEAN CORPUSCULAR HEMOGLOBIN 30.9 pg (27.0-34.0); MEAN CORPUSCULAR HGB CONC 33.1 g/dL (33.0-35.0); MEAN CORPUSCULAR VOLUME 93.2 fL (80.0-100.0); MEAN PLATELET VOLUME 8.1 fL (7.4-11.0); MONOCYTES # (AUTO) 0.8 x10^3/uL (0.3-0.8); MONOCYTES % (AUTO) 12.3 % (0.0-13.0); NEUTROPHILS # (AUTO) 4.3 x10^3/uL (2.2-4.8); NEUTROPHILS % (AUTO) 70.1 % (42.0-75.0); PLATELET COUNT 168 X10^3/uL (150.0-450.0); RED BLOOD COUNT 3.99 X10^6/uL (4.7-6.0); RED CELL DISTRIBUTION WIDTH 16.6 % (11.6-16.5); WHITE BLOOD COUNT 6.1 X10^3/uL (3.6-10.0)
[2017-09-10 23:01] LABS: ALANINE AMINOTRANSFERASE 31 Units/L (12-78); ALKALINE PHOSPHATASE 89 Units/L (46-116); ASPARTATE AMINO TRANSFERASE 29 Units/L (15-37); BLOOD UREA NITROGEN 41 mg/dL (7-18); CARBON DIOXIDE 28.9 mmol/L (21-32); CHLORIDE 110 mmol/L (98-107); CKMB % 3.3 % (<4); COR CA(FOR HYPOALB) 9.8 mg/dL (8.5-10.1); COR NA(FOR HYPERGLY) 147 mmol/L (136-145); CREATINE KINASE 63 Units/L (39-308); CREATINE KINASE MB 2.1 ng/mL (0-4.0); CREATININE 1.97 mg/dL (0.70-1.30); SODIUM 146 mmol/L (136-145); TOTAL PROTEIN 7.8 g/dL (6.4-8.2); TROPONIN I < 0.02 ng/mL (0-1.5); eGFR BLACK RACES 42 (>60); eGFR NON BLACK RACES 35 (>60)
[2017-09-10 23:11] LABS: B-TYPE NATRIURETIC PEPTIDE 4410 pg/mL (0-79)
[2017-09-10] MEDS: LASIX IVP SCH ×2 (23:56)
[2017-09-11 01:12] LABS: BILIRUBIN,URINE NEGATIVE (NEGATIVE); BLOOD/HEMOGLOBIN,URINE 5+ (NEGATIVE); GLUCOSE, URINE NEGATIVE (NEGATIVE); KETONES,URINE NEGATIVE (NEGATIVE); LEUKOCYTE ESTERASE ,URINE NEGATIVE (NEGATIVE); NITRITES,URINE NEGATIVE (NEGATIVE); PROTEIN,URINE 3+ (NEGATIVE); UROBILINOGEN,URINE NORMAL (NORMAL)
[2017-09-11 01:22] LABS: AMORPHOUS SEDIMENT,UR 3+ /HPF (NEGATIVE); APPEARANCE,URINE SLIGHTLY HAZY (CLEAR); BACTERIA,URINE NEGATIVE /HPF (NEGATIVE); COLOR,URINE YELLOW (YELLOW); RBC,URINE TNTC /HPF (NEGATIVE); SQUAMOUS EPITHELIAL CELL,UR RARE /HPF (NEGATIVE)
[2017-09-11 03:38] LABS: BASOPHILS % (AUTO) 0.8 % (0.2-1.0); EOSINOPHILS # (AUTO) 0.1 x10^3/uL (0.0-0.2); EOSINOPHILS % (AUTO) 1.6 % (0.9-2.9); HEMATOCRIT 36.9 % (42.0-54.0); HEMOGLOBIN 12.3 g/dL (13.5-18.0); LYMPHOCYTES # (AUTO) 0.8 X10^3/uL (1.3-2.9); MEAN CORPUSCULAR HEMOGLOBIN 31.1 pg (27.0-34.0); MEAN CORPUSCULAR HGB CONC 33.4 g/dL (33.0-35.0); MEAN CORPUSCULAR VOLUME 93.1 fL (80.0-100.0); MEAN PLATELET VOLUME 8.1 fL (7.4-11.0); MONOCYTES # (AUTO) 0.7 x10^3/uL (0.3-0.8); NEUTROPHILS # (AUTO) 4.3 x10^3/uL (2.2-4.8); NEUTROPHILS % (AUTO) 72.6 % (42.0-75.0); PLATELET COUNT 149 X10^3/uL (150.0-450.0); RED BLOOD COUNT 3.97 X10^6/uL (4.7-6.0); RED CELL DISTRIBUTION WIDTH 16.6 % (11.6-16.5); WHITE BLOOD COUNT 5.9 X10^3/uL (3.6-10.0)
[2017-09-11 03:44] LABS: CALCIUM 8.9 mg/dL (8.5-10.1); CARBON DIOXIDE 28.2 mmol/L (21-32); COR CA(FOR HYPOALB) 9.7 mg/dL (8.5-10.1); CREATININE 1.88 mg/dL (0.70-1.30); TOTAL PROTEIN 7.7 g/dL (6.4-8.2)
[2017-09-11 03:59] LABS: CKMB % 3.9 % (<4); CREATINE KINASE 66 Units/L (39-308); CREATINE KINASE MB 2.6 ng/mL (0-4.0); TROPONIN I < 0.02 ng/mL (0-1.5)
--- NOTE | 2017-09-11 07:14 | RAD ---
Examination: Portable AP chest History: CHF Comparison reference 09/10/2017 Findings: Continued cardiac enlargement. The left upper lung remains clear with abnormal parenchymal density left base. Continued near-complete opacification of the right chest consistent with combinati on of airspace disease and pleural fluid. Impression: No significant change. See above. Findings consistent with bilateral pneumonia and right pleural effusion. Reported By:
[2017-09-11] MEDS: LASIX IVP SCH ×2 (09:06→21:45)
[2017-09-11 09:53] LABS: CKMB % 1.5 % (<4); CREATINE KINASE 162 Units/L (39-308); CREATINE KINASE MB 2.5 ng/mL (0-4.0); TROPONIN I < 0.02 ng/mL (0-1.5)
[2017-09-11] MEDS: DUONEB 0.5 MG/3 MG NEB SCH ×3 (13:00→20:32)
[2017-09-11] MEDS ORDERED: SALINE 3% 15 ML NEB TX ONE (13:18)
[2017-09-11] MEDS: LEVAQUIN PREMIX IV 250 MG 250 MG/50 ML BAG IV SCH (16:39)
[2017-09-11] MEDS: NS 250 ML IV 250 ML IV SCH (16:39)
[2017-09-11] MEDS ORDERED: GLUCOPHAGE ONE (21:33)
[2017-09-11] MEDS: ELDERTONIC + WINE PO SCH (21:39)
[2017-09-11] MEDS: PEPCID TAB 20 MG PO SCH (21:40)
[2017-09-11] MEDS: NORVASC TAB 10 MG PO SCH (21:40)
[2017-09-11] MEDS: ZESTRIL TAB 5 MG PO SCH (21:40)
[2017-09-11] MEDS: COLACE CAP 100 MG PO SCH (21:40)
[2017-09-11] MEDS: GLUCOPHAGE PO SCH (21:41)
[2017-09-11] MEDS: LOPRESSOR TAB 25 MG PO SCH (21:41)
[2017-09-11] MEDS: NEURONTIN CAP 300 MG PO SCH (21:41)
[2017-09-11] MEDS: VOLTAREN 1 % GEL MULTI DOSE TUBE EXT SCH (21:48)
[2017-09-11] MEDS: MIRALAX POWDER (1 DOSE 17GM) PO SCH (21:49)
[2017-09-11] MEDS: AMINO ACIDS PO SCH (22:21)
[2017-09-11] MEDS: [UNRECOGNIZED DRUG - OTHER] PO SCH (22:21)
[2017-09-11] MEDS: PROTEIN HYDROLYS PO SCH (22:21)
[2017-09-12] MEDS: DUONEB 0.5 MG/3 MG NEB SCH ×6 (01:40→20:54)
[2017-09-12] MEDS: NS 250 ML IV 250 ML IV SCH ×2 (05:18→17:45)
[2017-09-12] MEDS: VOLTAREN 1 % GEL MULTI DOSE TUBE EXT SCH ×3 (05:19→21:37)
[2017-09-12 05:27] LABS: BASOPHILS % (AUTO) 0.6 % (0.2-1.0); EOSINOPHILS # (AUTO) 0.1 x10^3/uL (0.0-0.2); EOSINOPHILS % (AUTO) 1.5 % (0.9-2.9); HEMATOCRIT 32.5 % (42.0-54.0); HEMOGLOBIN 10.8 g/dL (13.5-18.0); LYMPHOCYTES # (AUTO) 0.7 X10^3/uL (1.3-2.9); LYMPHOCYTES % (AUTO) 13.8 % (21.0-51.0); MEAN CORPUSCULAR HEMOGLOBIN 31.1 pg (27.0-34.0); MEAN CORPUSCULAR HGB CONC 33.1 g/dL (33.0-35.0); MEAN CORPUSCULAR VOLUME 93.8 fL (80.0-100.0); MONOCYTES # (AUTO) 0.8 x10^3/uL (0.3-0.8); MONOCYTES % (AUTO) 14.2 % (0.0-13.0); NEUTROPHILS # (AUTO) 3.7 x10^3/uL (2.2-4.8); NEUTROPHILS % (AUTO) 69.9 % (42.0-75.0); PLATELET COUNT 136 X10^3/uL (150.0-450.0); RED BLOOD COUNT 3.46 X10^6/uL (4.7-6.0); WHITE BLOOD COUNT 5.3 X10^3/uL (3.6-10.0)
[2017-09-12 05:44] LABS: ALANINE AMINOTRANSFERASE 23 Units/L (12-78); ALBUMIN 2.4 g/dL (3.4-5.0); ALKALINE PHOSPHATASE 67 Units/L (46-116); ASPARTATE AMINO TRANSFERASE 20 Units/L (15-37); BLOOD UREA NITROGEN 36 mg/dL (7-18); CALCIUM 8.4 mg/dL (8.5-10.1); CARBON DIOXIDE 29.4 mmol/L (21-32); CHLORIDE 110 mmol/L (98-107); COR CA(FOR HYPOALB) 9.7 mg/dL (8.5-10.1); CREATININE 1.76 mg/dL (0.70-1.30); SODIUM 146 mmol/L (136-145); TOTAL PROTEIN 6.3 g/dL (6.4-8.2); eGFR BLACK RACES 48 (>60); eGFR NON BLACK RACES 39 (>60)
--- NOTE | 2017-09-12 08:14 | RAD ---
Examination: Portable AP chest History: CHF, SOB Comparison reference 09/11/2017 Findings: Continued cardiomegaly with aortic dilatation. Diffuse vascular congestion and suspect fermín vascular edema. Airspace consolidation in both bases with decreasing right pleural effusion. A small left pleural effusion is suggested. Impression: Stable cardiomegaly with findings consistent with CHF and pneumonia. There is slight inte rval improvement in appearance of the right chest since 1 day prior. Reported By:
[2017-09-12] MEDS ORDERED: GLUCOPHAGE ONE ×2 (09:29→20:13)
[2017-09-12] MEDS: LASIX IVP SCH ×2 (09:34→21:29)
[2017-09-12] MEDS: EFFEXOR XR 37.5 MG CAP PO SCH (09:34)
[2017-09-12] MEDS: MOBIC TAB 15 MG PO SCH (09:34)
[2017-09-12] MEDS: NORVASC TAB 10 MG PO SCH (09:34)
[2017-09-12] MEDS: GLUCOPHAGE PO SCH ×2 (09:34→21:29)
[2017-09-12] MEDS: ZESTRIL TAB 5 MG PO SCH (09:34)
[2017-09-12] MEDS: LEVAQUIN PREMIX IV 250 MG 250 MG/50 ML BAG IV SCH (09:34)
[2017-09-12] MEDS: TAB-A-VITE PO SCH (09:34)
[2017-09-12] MEDS: MICRO K EXTEN CAP 10 MEQ PO SCH (09:35)
[2017-09-12] MEDS: PROTEIN HYDROLYS PO SCH ×2 (09:35→21:37)
[2017-09-12] MEDS: COLACE CAP 100 MG PO SCH ×2 (09:35→21:29)
[2017-09-12] MEDS: LOPRESSOR TAB 25 MG PO SCH ×2 (09:35→21:29)
[2017-09-12] MEDS: AMINO ACIDS PO SCH ×2 (09:35→21:37)
[2017-09-12] MEDS: [UNRECOGNIZED DRUG - OTHER] PO SCH ×2 (09:35→21:37)
[2017-09-12] MEDS: PEPCID TAB 20 MG PO SCH ×2 (09:35→21:29)
[2017-09-12] MEDS: ALBUMIN HUMAN 25%- 100ML 100 ML IV SCH (12:11)
--- NOTE | 2017-09-12 16:38 | DR.H&P ---
H&P - History & Physical for Day of: H&P Date: 09/10/17 - Chief Complaint Chief Complaint: short of breath, edema - Allergies Allergies/Adverse Reactions: Allergies Allergy/AdvReac Type Severity Reaction Status Date / Time No Known Drug Allergies Allergy Verified 06/18/17 13:47 - History of Present Illness History of Present Illness: is a 82 year old resident of [facility] who was a direct admission for CHF. Patient presented with complaints of weakness, drowsiness, shortness of breath, and swelling. Patient also complaints of right shoulder pain. He rates pain 5/10. On examination, heart regular in rate and rhythm. Bilateral lungs are noted with rhonchi and wheezing throughout. Lung sounds diminished. Abdomen is round, soft, and non- tender with normal bowel sounds noted in all quadrants. Bilateral lower extremities are noted with 3+ pitting edema. Scrotal edema also noted. Medical history includes the following: dementia, CHF, cardiac arrhythmia, afib, GERD, constipation, muscle weakness, osteoarthritis, diabetes, depression. Vital signs on arrival were 97.8, 72, 20, 99%NC 2LPm, 190/97. Labs and chest xray were obtained. Abnormal Labs include the following: RBC 3.99, Hgb 12.3, Hct 37.2 , RDW 16.6, Sodium 146, Corrected Sodium 147, Chloride 110, BUN 41, Creatinine 1.97, GFR(AA) 42, GFR(non) 35, Glucose 139, BNP 4410, Albumin 3.0, Globulin 4.8 , A/G Ratio 0.6. A chest xray was obtained and reported Chronic cardiomegaly with near complete white out of the right olivier thorax with large right effusion , underlying infection not excluded, correlate clinically. We started him on Lasix 40mg iv BID and Levaquin 250mg IV bid. We plan to follow up with AM labs and chest xray and continue to monitor patient. - Past Medical History Past Medical History: Arthritis, CHF, Dementia, Diabetes, Hypertension Additional Medical History: Muscle Weakness - Past Surgical History Surgical History: Other Additional Surgical History: Chest tube, Hernia Repair - Family History Family Medical History: Cancer - Social History Does patient currently use any type of tobacco product: No Have you used tobacco products in the last 12 months: No Type of Tobacco Use: None Alcohol Use: None Drug Use: None - Medications Home Medications: Furosemide [Lasix] 20 mg PO BID 09/10/17 [History Confirmed 09/10/17] - Review of Systems Constitutional: See HPI, Weakness, Other (drowsiness ). denies: Fever, Chills, Sweats Eyes: No Symptoms Reported. denies: See HPI, Pain, Vision Change, Conjunctivae Inflammation, Eyelid Inflammation, Redness, Other ENT: No Symptoms Reported. denies: See HPI, Ear Pain, Ear Discharge, Nose Pain , Nose Discharge, Nose Congestion, Mouth Pain, Mouth Swelling, Throat Pain, Throat Swelling, Other Respiratory: Cough, Shortness of Breath, Wheezing Cardiovascular: Edema (scrotum and bilateral lower extremities) Gastrointestinal: No Symptoms Reported. denies: See HPI, Nausea, Vomiting, Abdominal Pain, Diarrhea, Constipation, Melena, Hematochezia, Other Genitourinary: No Symptoms Reported. denies: See HPI, Dysuria, Frequency, Incontinence, Hematuria, Retention, Other Musculoskeletal: Shoulder Pain (right shoulder pain ) Skin: No Symptoms Reported. denies: See HPI, Rash, Lesions, Jaundice, Bruising , Wound, Ecchymosis, Other Neurological: Weakness - Physical Exam Vital Signs: Temperature 98.3 F Pulse Rate [Radial] 74 Pulse Rate 88 Respiratory Rate 20 Blood Pressure [Right Arm] 143/90 Blood Pressure [Left Arm] 152/93 Blood Pressure 131/66 O2 Sat by Pulse Oximetry 96 Oriented: Normal Eyes: Normal. negative: Blurred Vision, Diplopia, Discharge, Pain, Redness, Photophobia, Other Ear: Normal. negative: Right, Left, Swelling, Ecchymosis, Hemotypanum, Abrasion , Laceration Nose: Normal. negative: Injected, Discharge, Blood, Other Throat: Normal Respiratory: Diminished Throughout, Rhonchi Throughout, Wheezes Throughout Cardiovascular: Edema (scrotum and bilateral lower extremities ) : Normal Auscultation: Bowel Sounds: Normal Palpation: Normal Tenderness: Normal. negative: Rebound, Guarding, Rigidity Skin: Normal Musculoskeletal: Right, Shoulder Psychiatric: Normal Mood Description: Calm Affect: Normal Speech Pattern: Clear - Assessment/Plan (1) CHF (congestive heart failure) Qualifiers: Congestive heart failure type: systolic Congestive heart failure chronicity : acute on chronic Qualified Code(s): I50.23 - Acute on chronic systolic ( congestive) heart failure Status: Chronic Plan: lasix 40mg iv bid, supplemental oxygen, neb tx, continue to monitor labs and chest xray (2) Pneumonia Qualifiers: Pneumonia type: due to unspecified organism Laterality: right Lung location: unspecified part of lung Qualified Code(s): J18.9 - Pneumonia, unspecified organism Status: Acute Plan: levaquin 250mg iv daily, supplemental oxygen, neb tx, continue to monitor labs and chest xray
[2017-09-12] MEDS: NEURONTIN CAP 300 MG PO SCH (21:29)
[2017-09-12] MEDS: MIRALAX POWDER (1 DOSE 17GM) PO SCH (21:29)
[2017-09-12] MEDS: ELDERTONIC + WINE PO SCH (21:30)
--- NOTE | 2017-09-12 22:59 | PCM.PROG ---
Progress Note - Progress Note for Day of Date: 09/11/17 - Subjective Subjective: WAS ADMITTED FOR CONGESTIVE HEART FAILURE AND RIGHT UPPER AND LOWER LOBE PNEUMONIA. TODAY, HE IS LYING IN BED WITH EYES CLOSED. HE AWAKENS AND RESPONDS TO VERBAL STIMULI. HE IS NOTED WITH COUGH AND SHORNTESS OF BREATH. HE ALSO CONTINUES WITH BILATERAL 2+ PITTING EDEMA WELL SCROTAL EDEMA. BILATERAL LUNGS CONTINUE WITH SCATTERED WHEEZING AND RHONCHI. HIS VITAL SIGNS THIS MORNING ARE 97.4-72-20-100%-160/96. LABS WERE OBTAINED. ABNORMAL LAB VALUES INCLUDE THE FOLLOWING: RBC 3.46, HGB 10.8, HCT 32.5, SODIUM 146, CHLORIDE 110, BUN 40, CREATININE 1.88, GLUCOSE 142, ALBUMIN 3.0, GLOBULIN 4.7. BNP IS MARKEDLY ELEVATED AT 4890. CARDIAC ENZYMES HAVE BEEN WITHIN NORMAL LIMITS. A SPUTUM CULTURE WAS OBTAINED AND IS PENDING RESULTS. TODAYS CHEST XRAY REPORTS CONTINUED NEAR COMPLETE OPACIFICATION OF THE RIGHT CHEST CONSISTENT WITH COMBINATION OF AIRSPACE DISEASE AND PLEURAL FLUID. TODAY, WE WILL CONTINUE IV ANTIBIOTICS, NEB TX, AND LASIX 40MG IV BID. OTHERWISE, WE PLAN TO FOLLOW UP WITH AM LABS AND CHEST XRAY AND CONTINUE TO MONITOR PATIENT. - Past Medical Family Social History Past Med/Fam/Surg Hx: No changes since H&P Allergies: Allergies No Known Drug Allergies Allergy (Verified 06/18/17 13:47) - Review of Systems ROS: No change since H&P - Vital Signs and I&O's Vital Signs: Temperature 98.8 F Pulse Rate [Radial] 97 Pulse Rate 100 Respiratory Rate 20 Blood Pressure [Right Arm] 158/78 Blood Pressure [Left Arm] 152/93 Blood Pressure 131/66 O2 Sat by Pulse Oximetry 98 Intake and Output: Intake & Output 09/10/17 09/11/17 09/12/17 09/13/17 11:59 11:59 11:59 11:59 Intake Total 30 520 650 Output Total 245 0821 438 Balance -466 -6730 -24 - Physical Exam Oriented: Normal Eyes: Normal. negative: Blurred Vision, Diplopia, Discharge, Pain, Redness, Photophobia, Other Ear: Normal. negative: Right, Left, Swelling, Ecchymosis, Hemotypanum, Abrasion , Laceration Nose: Normal. negative: Injected, Discharge, Blood, Other Throat: Normal Respiratory: Right, Generalized, Wheezes, Rhonchi Cardiovascular: Edema (scrotum and bilateral lower extremities ) : Normal Auscultation: Bowel Sounds: Normal Palpation: Normal Tenderness: Normal. negative: Rebound, Guarding, Rigidity Skin: Normal Musculoskeletal: Right, Shoulder Psychiatric: Normal Mood Description: Calm Affect: Normal Speech Pattern: Aphasic - Laboratory and Diagnostics Result Diagrams: 09/12/17 04:20 09/12/17 04:20 Labs: 09/11/17 15:14 Sputum - Expectorated Sputum Sputum Culture - Preliminary 09/11/17 15:14 Sputum - Expectorated Sputum - Final Laboratory WBC 5.3 X10^3/uL (3.6-10.0) 09/12/17 04:20 RBC 3.46 X10^6/uL (4.7-6.0) L 09/12/17 04:20 Hgb 10.8 g/dL (13.5-18.0) L 09/12/17 04:20 Hct 32.5 % (42.0-54.0) L 09/12/17 04:20 MCV 93.8 fL (80.0-100.0) 09/12/17 04:20 MCH 31.1 pg (27.0-34.0) 09/12/17 04:20 MCHC 33.1 g/dL (33.0-35.0) 09/12/17 04:20 RDW 16.0 % (11.6-16.5) 09/12/17 04:20 Plt Count 136 X10^3/uL (150.0-450.0) L 09/12/17 04:20 MPV 8.0 fL (7.4-11.0) 09/12/17 04:20 Neut % 69.9 % (42.0-75.0) 09/12/17 04:20 Lymph % 13.8 % (21.0-51.0) L 09/12/17 04:20 [place] % 14.2 % (0.0-13.0) H 09/12/17 04:20 Eos % 1.5 % (0.9-2.9) 09/12/17 04:20 Baso % 0.6 % (0.2-1.0) 09/12/17 04:20 Neut # 3.7 x10^3/uL (2.2-4.8) 09/12/17 04:20 Lymph # 0.7 X10^3/uL (1.3-2.9) L 09/12/17 04:20 [place] # 0.8 x10^3/uL (0.3-0.8) 09/12/17 04:20 Eos # 0.1 x10^3/uL (0.0-0.2) 09/12/17 04:20 Baso # 0.0 X10^3/uL (0.0-0.1) 09/12/17 04:20 Absolute Nucleated RBC 0.1 /100WBC 09/12/17 04:20 Sodium 146 mmol/L (136-145) H 09/12/17 04:20 Corrected Sodium TNP 09/12/17 04:20 Potassium 4.0 mmol/L (3.5-5.1) 09/12/17 04:20 Chloride 110 mmol/L (98-107) H 09/12/17 04:20 Carbon Dioxide 29.4 mmol/L (21-32) 09/12/17 04:20 BUN 36 mg/dL (7-18) H 09/12/17 04:20 Creatinine 1.76 mg/dL (0.70-1.30) H 09/12/17 04:20 Est GFR (MDRD) Af Amer 48 (>60) L 09/12/17 04:20 Est GFR (MDRD) Non-Af 39 (>60) L 09/12/17 04:20 Glucose 99 mg/dL (65-99) 09/12/17 04:20 POC Glucose (mg/dL) 155 mg/dL (65-99) H 09/12/17 16:54 Calcium 8.4 mg/dL (8.5-10.1) L 09/12/17 04:20 Corrected Calcium 9.7 mg/dL (8.5-10.1) 09/12/17 04:20 Total Bilirubin 0.50 mg/dL (0.2-1.0) 09/12/17 04:20 AST 20 Units/L (15-37) 09/12/17 04:20 ALT 23 Units/L (12-78) 09/12/17 04:20 Alkaline Phosphatase 67 Units/L (46-116) 09/12/17 04:20 Creatine Kinase 162 Units/L (39-308) 09/11/17 08:54 CK-MB (CK-2) 2.5 ng/mL (0-4.0) 09/11/17 08:54 CK/CKMB % Calc 1.5 % (<4) 09/11/17 08:54 Troponin I < 0.02 ng/mL (0-1.5) 09/11/17 08:54 B-Natriuretic Peptide 2950 pg/mL (0-79) H* 09/12/17 04:20 Total Protein 6.3 g/dL (6.4-8.2) L 09/12/17 04:20 Albumin 2.4 g/dL (3.4-5.0) L 09/12/17 04:20 Globulin 3.9 g/dL (2.5-4.5) 09/12/17 04:20 Albumin/Globulin Ratio 0.6 Ratio (1.1-2.1) L 09/12/17 04:20 Specimen Type Catherized urine 09/11/17 01:00 Urine Color Yellow (YELLOW) 09/11/17 01:00 Urine Appearance Slightly hazy (CLEAR) 09/11/17 01:00 Urine pH 5.0 (5.0 - 8.0) 09/11/17 01:00 Ur Specific [place] 1.015 (1.000-1.030) 09/11/17 01:00 Urine Protein 3+ (NEGATIVE) 09/11/17 01:00 Urine Glucose (UA) Negative (NEGATIVE) 09/11/17 01:00 Urine Ketones Negative (NEGATIVE) 09/11/17 01:00 Urine Occult Blood 5+ (NEGATIVE) 09/11/17 01:00 Urine Nitrite Negative (NEGATIVE) 09/11/17 01:00 Urine Bilirubin Negative (NEGATIVE) 09/11/17 01:00 Urine Urobilinogen Normal (NORMAL) 09/11/17 01:00 Ur Leukocyte Esterase Negative (NEGATIVE) 09/11/17 01:00 Urine RBC Tntc /HPF (NEGATIVE) 09/11/17 01:00 Urine WBC 0-1 /HPF (NEGATIVE) 09/11/17 01:00 Ur Squamous Epith Cells Rare /HPF (NEGATIVE) 09/11/17 01:00 Amorphous Sediment 3+ /HPF (NEGATIVE) 09/11/17 01:00 Urine Bacteria Negative /HPF (NEGATIVE) 09/11/17 01:00 Ur Culture Indicated? No/not indicated 09/11/17 01:00 - Plan (1) CHF (congestive heart failure) Status: Chronic Qualifiers: Congestive heart failure type: systolic Congestive heart failure chronicity : acute on chronic Qualified Code(s): I50.23 - Acute on chronic systolic ( congestive) heart failure Plan: lasix 40mg iv bid, supplemental oxygen, neb tx, continue to monitor labs and chest xray (2) Pneumonia Status: Acute Qualifiers: Pneumonia type: due to unspecified organism Laterality: right Lung location: unspecified part of lung Qualified Code(s): J18.9 - Pneumonia, unspecified organism Plan: levaquin 250mg iv daily, supplemental oxygen, neb tx, continue to monitor labs and chest xray
[2017-09-12] MEDS: ULTRAM PO PRN (23:24)
[2017-09-13] MEDS: DUONEB 0.5 MG/3 MG NEB SCH ×4 (01:00→21:09)
[2017-09-13 05:48] LABS: BASOPHILS % (AUTO) 0.3 % (0.2-1.0); EOSINOPHILS # (AUTO) 0.1 x10^3/uL (0.0-0.2); EOSINOPHILS % (AUTO) 1.8 % (0.9-2.9); HEMATOCRIT 29.5 % (42.0-54.0); LYMPHOCYTES % (AUTO) 16.1 % (21.0-51.0); MEAN CORPUSCULAR HEMOGLOBIN 31.5 pg (27.0-34.0); MEAN CORPUSCULAR VOLUME 92.6 fL (80.0-100.0); MONOCYTES % (AUTO) 14.9 % (0.0-13.0); NEUTROPHILS # (AUTO) 4.4 x10^3/uL (2.2-4.8); NEUTROPHILS % (AUTO) 66.9 % (42.0-75.0); PLATELET COUNT 112 X10^3/uL (150.0-450.0); RED BLOOD COUNT 3.19 X10^6/uL (4.7-6.0); RED CELL DISTRIBUTION WIDTH 16.3 % (11.6-16.5); WHITE BLOOD COUNT 6.5 X10^3/uL (3.6-10.0)
[2017-09-13 05:57] LABS: PLATELET MORPHOLOGY COMMENT NORMAL (NORMAL)
[2017-09-13 06:04] LABS: ALANINE AMINOTRANSFERASE 17 Units/L (12-78); ALBUMIN 2.7 g/dL (3.4-5.0); ALKALINE PHOSPHATASE 64 Units/L (46-116); ASPARTATE AMINO TRANSFERASE 20 Units/L (15-37); BLOOD UREA NITROGEN 36 mg/dL (7-18); CALCIUM 8.4 mg/dL (8.5-10.1); CARBON DIOXIDE 28.4 mmol/L (21-32); CHLORIDE 108 mmol/L (98-107); COR CA(FOR HYPOALB) 9.4 mg/dL (8.5-10.1); CREATININE 1.84 mg/dL (0.70-1.30); SODIUM 144 mmol/L (136-145); TOTAL PROTEIN 6.4 g/dL (6.4-8.2); eGFR BLACK RACES 45 (>60); eGFR NON BLACK RACES 37 (>60)
--- NOTE | 2017-09-13 06:21 | RAD ---
Examination: Portable AP chest History: SOB Comparison reference 09/12/2017 Findings: Continued cardiac enlargement. Increasing airspace disease in both lower lungs with persist ent right pleural effusion. Impression: Persistent consolidation left lower lung with increasing airspace process right lung as w ell. Stable right pleural effusion. Reported By:
[2017-09-13] MEDS: VOLTAREN 1 % GEL MULTI DOSE TUBE EXT SCH ×3 (06:34→21:43)
[2017-09-13] MEDS: ALBUMIN HUMAN 25%- 100ML 100 ML IV SCH ×2 (10:40→21:28)
[2017-09-13] MEDS: TAB-A-VITE PO SCH (10:42)
[2017-09-13] MEDS: NORVASC TAB 10 MG PO SCH (10:42)
[2017-09-13] MEDS: EFFEXOR XR 37.5 MG CAP PO SCH (10:42)
[2017-09-13] MEDS: LASIX IVP SCH ×2 (10:42→21:27)
[2017-09-13] MEDS: MICRO K EXTEN CAP 10 MEQ PO SCH (10:43)
[2017-09-13] MEDS: COLACE CAP 100 MG PO SCH ×2 (10:43→21:28)
[2017-09-13] MEDS: ZESTRIL TAB 5 MG PO SCH (10:43)
[2017-09-13] MEDS: MOBIC TAB 15 MG PO SCH (10:43)
[2017-09-13] MEDS: LOPRESSOR TAB 25 MG PO SCH ×2 (10:44→21:28)
[2017-09-13] MEDS: LEVAQUIN PREMIX IV 250 MG 250 MG/50 ML BAG IV SCH (10:44)
[2017-09-13] MEDS: PEPCID TAB 20 MG PO SCH (10:44)
--- NOTE | 2017-09-13 12:41 | PCM.PROG ---
Progress Note - Progress Note for Day of Date: 09/12/17 - Subjective Subjective: WAS ADMITTED FOR CONGESTIVE HEART FAILURE AND RIGHT UPPER AND LOWER LOBE PNEUMONIA. TODAY, HE IS LYING IN BED WITH EYES CLOSED. HE AWAKENS AND RESPONDS TO VERBAL STIMULI. HE IS NOTED WITH COUGH AND SHORNTESS OF BREATH. HE ALSO CONTINUES WITH BILATERAL 2+ PITTING EDEMA WELL SCROTAL EDEMA. BILATERAL LUNGS CONTINUE WITH SCATTERED WHEEZING AND RHONCHI. HIS VITAL SIGNS THIS MORNING ARE 98.3-70-18-98%-149/67. LABS WERE OBTAINED. ABNORMAL LAB VALUES INCLUDE THE FOLLOWING: RBC 3.46, HGB 10.8, HCT 32.5, SODIUM 146, CHLORIDE 110, BUN 36, CREATININE 1.76, CALCIUM 8.4, TOTAL PROTEIN 6.3, ALBUMIN 2.4, BNP DECREASED TO 2950. CARDIAC ENZYMES HAVE BEEN WITHIN NORMAL LIMITS. A SPUTUM CULTURE WAS OBTAINED AND IS PENDING RESULTS. TODAYS CHEST XRAY REPORTS STABLE CARDIOMEGALY WITH FINDINGS CONSISTENT WITH CHF AND PNEUMONIA. THERE IS SLIGHT INTERVAL IMPROVEMENT IN APPEARANCE OF THE RIGHT CHEST SINCE 1 DAY PRIOR. TODAY, WE WILL CONTINUE IV ANTIBIOTICS, NEB TX, AND LASIX 40MG IV BID AND START ALBUIN 25% IV DAILY. OTHERWISE, WE PLAN TO FOLLOW UP WITH AM LABS AND CHEST XRAY AND CONTINUE TO MONITOR PATIENT. - Past Medical Family Social History Past Med/Fam/Surg Hx: No changes since H&P Allergies: Allergies No Known Drug Allergies Allergy (Verified 06/18/17 13:47) - Review of Systems ROS: No change since H&P - Vital Signs and I&O's Vital Signs: Temperature 98.4 F Pulse Rate [Radial] 77 Pulse Rate 80 Respiratory Rate 18 Blood Pressure [Right Arm] 147/76 Blood Pressure [Left Arm] 134/82 Blood Pressure 131/66 O2 Sat by Pulse Oximetry 147 Intake and Output: Intake & Output 09/11/17 09/12/17 09/13/17 09/14/17 11:59 11:59 11:59 11:59 Intake Total 30 520 760 Output Total 849 5726 6284 Balance -075 -8845 -998 - Physical Exam Oriented: Normal Eyes: Normal. negative: Blurred Vision, Diplopia, Discharge, Pain, Redness, Photophobia, Other Ear: Normal. negative: Right, Left, Swelling, Ecchymosis, Hemotypanum, Abrasion , Laceration Nose: Normal. negative: Injected, Discharge, Blood, Other Throat: Normal Respiratory: Right, Generalized, Wheezes, Rhonchi Cardiovascular: Edema (scrotum and bilateral lower extremities ) : Normal Auscultation: Bowel Sounds: Normal Tenderness: Normal. negative: Rebound, Guarding, Rigidity Skin: Normal Musculoskeletal: Right, Shoulder Psychiatric: Normal Mood Description: Calm Affect: Normal Speech Pattern: Aphasic - Laboratory and Diagnostics Result Diagrams: 09/13/17 04:20 09/13/17 04:20 Labs: 09/11/17 15:14 Sputum - Expectorated Sputum Sputum Culture - Preliminary 09/11/17 15:14 Sputum - Expectorated Sputum - Final Laboratory WBC 6.5 X10^3/uL (3.6-10.0) 09/13/17 04:20 RBC 3.19 X10^6/uL (4.7-6.0) L 09/13/17 04:20 Hgb 10.0 g/dL (13.5-18.0) L 09/13/17 04:20 Hct 29.5 % (42.0-54.0) L 09/13/17 04:20 MCV 92.6 fL (80.0-100.0) 09/13/17 04:20 MCH 31.5 pg (27.0-34.0) 09/13/17 04:20 MCHC 34.0 g/dL (33.0-35.0) 09/13/17 04:20 RDW 16.3 % (11.6-16.5) 09/13/17 04:20 Plt Count 112 X10^3/uL (150.0-450.0) L 09/13/17 04:20 Plt Count Comment Decreased (ADEQUATE) 09/13/17 04:20 MPV 9.0 fL (7.4-11.0) 09/13/17 04:20 Neut % 66.9 % (42.0-75.0) 09/13/17 04:20 Lymph % 16.1 % (21.0-51.0) L 09/13/17 04:20 [place] % 14.9 % (0.0-13.0) H 09/13/17 04:20 Eos % 1.8 % (0.9-2.9) 09/13/17 04:20 Baso % 0.3 % (0.2-1.0) 09/13/17 04:20 Neut # 4.4 x10^3/uL (2.2-4.8) 09/13/17 04:20 Lymph # 1.0 X10^3/uL (1.3-2.9) L 09/13/17 04:20 [place] # 1.0 x10^3/uL (0.3-0.8) H 09/13/17 04:20 Eos # 0.1 x10^3/uL (0.0-0.2) 09/13/17 04:20 Baso # 0.0 X10^3/uL (0.0-0.1) 09/13/17 04:20 Absolute Nucleated RBC 0.1 /100WBC 09/13/17 04:20 Plt Morphology Comment Normal (NORMAL) 09/13/17 04:20 RBC Morphology Normal (NORMAL) 09/13/17 04:20 Sodium 144 mmol/L (136-145) 09/13/17 04:20 Corrected Sodium TNP 09/13/17 04:20 Potassium 4.2 mmol/L (3.5-5.1) 09/13/17 04:20 Chloride 108 mmol/L (98-107) H 09/13/17 04:20 Carbon Dioxide 28.4 mmol/L (21-32) 09/13/17 04:20 BUN 36 mg/dL (7-18) H 09/13/17 04:20 Creatinine 1.84 mg/dL (0.70-1.30) H 09/13/17 04:20 Est GFR (MDRD) Af Amer 45 (>60) L 09/13/17 04:20 Est GFR (MDRD) Non-Af 37 (>60) L 09/13/17 04:20 Glucose 94 mg/dL (65-99) 09/13/17 04:20 POC Glucose (mg/dL) 155 mg/dL (65-99) H 09/12/17 16:54 Calcium 8.4 mg/dL (8.5-10.1) L 09/13/17 04:20 Corrected Calcium 9.4 mg/dL (8.5-10.1) 09/13/17 04:20 Total Bilirubin 0.40 mg/dL (0.2-1.0) 09/13/17 04:20 AST 20 Units/L (15-37) 09/13/17 04:20 ALT 17 Units/L (12-78) 09/13/17 04:20 Alkaline Phosphatase 64 Units/L (46-116) 09/13/17 04:20 Creatine Kinase 162 Units/L (39-308) 09/11/17 08:54 CK-MB (CK-2) 2.5 ng/mL (0-4.0) 09/11/17 08:54 CK/CKMB % Calc 1.5 % (<4) 09/11/17 08:54 Troponin I < 0.02 ng/mL (0-1.5) 09/11/17 08:54 B-Natriuretic Peptide 2950 pg/mL (0-79) H* 09/12/17 04:20 Total Protein 6.4 g/dL (6.4-8.2) 09/13/17 04:20 Albumin 2.7 g/dL (3.4-5.0) L 09/13/17 04:20 Globulin 3.7 g/dL (2.5-4.5) 09/13/17 04:20 Albumin/Globulin Ratio 0.7 Ratio (1.1-2.1) L 09/13/17 04:20 Specimen Type Catherized urine 09/11/17 01:00 Urine Color Yellow (YELLOW) 09/11/17 01:00 Urine Appearance Slightly hazy (CLEAR) 09/11/17 01:00 Urine pH 5.0 (5.0 - 8.0) 09/11/17 01:00 Ur Specific [place] 1.015 (1.000-1.030) 09/11/17 01:00 Urine Protein 3+ (NEGATIVE) 09/11/17 01:00 Urine Glucose (UA) Negative (NEGATIVE) 09/11/17 01:00 Urine Ketones Negative (NEGATIVE) 09/11/17 01:00 Urine Occult Blood 5+ (NEGATIVE) 09/11/17 01:00 Urine Nitrite Negative (NEGATIVE) 09/11/17 01:00 Urine Bilirubin Negative (NEGATIVE) 09/11/17 01:00 Urine Urobilinogen Normal (NORMAL) 09/11/17 01:00 Ur Leukocyte Esterase Negative (NEGATIVE) 09/11/17 01:00 Urine RBC Tntc /HPF (NEGATIVE) 09/11/17 01:00 Urine WBC 0-1 /HPF (NEGATIVE) 09/11/17 01:00 Ur Squamous Epith Cells Rare /HPF (NEGATIVE) 09/11/17 01:00 Amorphous Sediment 3+ /HPF (NEGATIVE) 09/11/17 01:00 Urine Bacteria Negative /HPF (NEGATIVE) 09/11/17 01:00 Ur Culture Indicated? No/not indicated 09/11/17 01:00 - Plan (1) CHF (congestive heart failure) Status: Chronic Qualifiers: Congestive heart failure type: systolic Congestive heart failure chronicity : acute on chronic Qualified Code(s): I50.23 - Acute on chronic systolic ( congestive) heart failure Plan: lasix 40mg iv bid, supplemental oxygen, neb tx, continue to monitor labs and chest xray (2) Pneumonia Status: Acute Qualifiers: Pneumonia type: due to unspecified organism Laterality: right Lung location: unspecified part of lung Qualified Code(s): J18.9 - Pneumonia, unspecified organism Plan: levaquin 250mg iv daily, supplemental oxygen, neb tx, continue to monitor labs and chest xray
[2017-09-13] MEDS: PROTEIN HYDROLYS PO SCH ×2 (14:16→21:42)
[2017-09-13] MEDS: [UNRECOGNIZED DRUG - OTHER] PO SCH ×2 (14:16→21:42)
[2017-09-13] MEDS: AMINO ACIDS PO SCH ×2 (14:16→21:42)
[2017-09-13] MEDS: NS 250 ML IV 250 ML IV SCH ×2 (18:16→21:42)
[2017-09-13] MEDS: ULTRAM PO PRN (21:26)
[2017-09-13] MEDS: ELDERTONIC + WINE PO SCH (21:28)
[2017-09-13] MEDS: MIRALAX POWDER (1 DOSE 17GM) PO SCH (21:28)
[2017-09-13] MEDS: NEURONTIN CAP 300 MG PO SCH (21:28)
[2017-09-14] MEDS: DUONEB 0.5 MG/3 MG NEB SCH ×7 (01:07→21:09)
[2017-09-14] MEDS: VOLTAREN 1 % GEL MULTI DOSE TUBE EXT SCH ×3 (05:29→21:50)
[2017-09-14 05:47] LABS: BASOPHILS % (AUTO) 0.5 % (0.2-1.0); EOSINOPHILS # (AUTO) 0.1 x10^3/uL (0.0-0.2); EOSINOPHILS % (AUTO) 2.2 % (0.9-2.9); HEMATOCRIT 30.2 % (42.0-54.0); HEMOGLOBIN 10.2 g/dL (13.5-18.0); LYMPHOCYTES # (AUTO) 0.8 X10^3/uL (1.3-2.9); LYMPHOCYTES % (AUTO) 15.2 % (21.0-51.0); MEAN CORPUSCULAR HEMOGLOBIN 31.6 pg (27.0-34.0); MEAN CORPUSCULAR HGB CONC 33.8 g/dL (33.0-35.0); MEAN CORPUSCULAR VOLUME 93.6 fL (80.0-100.0); MEAN PLATELET VOLUME 8.7 fL (7.4-11.0); MONOCYTES # (AUTO) 0.8 x10^3/uL (0.3-0.8); MONOCYTES % (AUTO) 14.6 % (0.0-13.0); NEUTROPHILS # (AUTO) 3.7 x10^3/uL (2.2-4.8); NEUTROPHILS % (AUTO) 67.5 % (42.0-75.0); PLATELET COUNT 110 X10^3/uL (150.0-450.0); RED BLOOD COUNT 3.23 X10^6/uL (4.7-6.0); RED CELL DISTRIBUTION WIDTH 16.3 % (11.6-16.5); WHITE BLOOD COUNT 5.5 X10^3/uL (3.6-10.0)
[2017-09-14 05:52] LABS: ALBUMIN 3.3 g/dL (3.4-5.0); CALCIUM 8.5 mg/dL (8.5-10.1); CARBON DIOXIDE 31.1 mmol/L (21-32); COR CA(FOR HYPOALB) 9.1 mg/dL (8.5-10.1); CREATININE 1.86 mg/dL (0.70-1.30); TOTAL PROTEIN 6.8 g/dL (6.4-8.2)
--- NOTE | 2017-09-14 07:28 | RAD ---
Examination: Portable AP chest History: SOB Comparison reference 09/13/2017 Findings: Persistent cardiac enlargement with dilated aorta. Retrocardiac opacity is again noted with diffuse infiltrates in the right lung, and right pleural effusion. There is no evidence for pneumoth orax. The left upper lung remains relatively clear. Impression: No change. Persistent cardiomegaly, aortic ectasia, left lower lobe consolidation, right- sided infiltrates and pleural fluid. Reported By:
[2017-09-14] MEDS: ALBUMIN HUMAN 25%- 100ML 100 ML IV SCH ×2 (10:15→21:23)
[2017-09-14] MEDS: COLACE CAP 100 MG PO SCH ×2 (10:16→21:25)
[2017-09-14] MEDS: EFFEXOR XR 37.5 MG CAP PO SCH (10:16)
[2017-09-14] MEDS: LASIX IVP SCH ×2 (10:16→21:49)
[2017-09-14] MEDS: LEVAQUIN PREMIX IV 250 MG 250 MG/50 ML BAG IV SCH (10:16)
[2017-09-14] MEDS: MICRO K EXTEN CAP 10 MEQ PO SCH (10:17)
[2017-09-14] MEDS: LOPRESSOR TAB 25 MG PO SCH ×2 (10:17→21:49)
[2017-09-14] MEDS: MOBIC TAB 15 MG PO SCH (10:17)
[2017-09-14] MEDS: ZESTRIL TAB 5 MG PO SCH (10:18)
[2017-09-14] MEDS: PEPCID TAB 20 MG PO SCH (10:18)
[2017-09-14] MEDS: NORVASC TAB 10 MG PO SCH (10:18)
[2017-09-14] MEDS: TAB-A-VITE PO SCH (10:18)
[2017-09-14] MEDS: [UNRECOGNIZED DRUG - OTHER] PO SCH ×2 (10:32→21:25)
[2017-09-14] MEDS: PROTEIN HYDROLYS PO SCH ×2 (10:32→21:25)
[2017-09-14] MEDS: AMINO ACIDS PO SCH ×2 (10:32→21:25)
[2017-09-14] MEDS ORDERED: NS 1000 ML 0 ML ONE (15:39)
[2017-09-14] MEDS ORDERED: NS 500 ML IV 500 ML IV ONE (15:43)
[2017-09-14] MEDS: NS 250 ML IV 250 ML IV SCH ×3 (16:30→23:20)
[2017-09-14] MEDS: MIRALAX POWDER (1 DOSE 17GM) PO SCH (21:24)
[2017-09-14] MEDS: NEURONTIN CAP 300 MG PO SCH (21:25)
[2017-09-14] MEDS: ULTRAM PO PRN (21:25)
[2017-09-14] MEDS: ELDERTONIC + WINE PO SCH (21:26)
[2017-09-15] MEDS: DUONEB 0.5 MG/3 MG NEB SCH ×6 (01:26→21:19)
[2017-09-15] MEDS: ULTRAM PO PRN (03:14)
[2017-09-15] MEDS: VOLTAREN 1 % GEL MULTI DOSE TUBE EXT SCH ×3 (05:31→22:17)
[2017-09-15 05:37] LABS: BASOPHILS % (AUTO) 0.4 % (0.2-1.0); EOSINOPHILS # (AUTO) 0.1 x10^3/uL (0.0-0.2); EOSINOPHILS % (AUTO) 2.1 % (0.9-2.9); HEMATOCRIT 29.6 % (42.0-54.0); HEMOGLOBIN 9.9 g/dL (13.5-18.0); LYMPHOCYTES # (AUTO) 0.8 X10^3/uL (1.3-2.9); LYMPHOCYTES % (AUTO) 14.6 % (21.0-51.0); MEAN CORPUSCULAR HEMOGLOBIN 31.4 pg (27.0-34.0); MEAN CORPUSCULAR HGB CONC 33.6 g/dL (33.0-35.0); MEAN CORPUSCULAR VOLUME 93.5 fL (80.0-100.0); MEAN PLATELET VOLUME 8.1 fL (7.4-11.0); MONOCYTES # (AUTO) 0.9 x10^3/uL (0.3-0.8); MONOCYTES % (AUTO) 16.4 % (0.0-13.0); NEUTROPHILS # (AUTO) 3.5 x10^3/uL (2.2-4.8); NEUTROPHILS % (AUTO) 66.5 % (42.0-75.0); PLATELET COUNT 120 X10^3/uL (150.0-450.0); RED BLOOD COUNT 3.17 X10^6/uL (4.7-6.0); RED CELL DISTRIBUTION WIDTH 16.6 % (11.6-16.5); WHITE BLOOD COUNT 5.2 X10^3/uL (3.6-10.0)
[2017-09-15 05:46] LABS: ALANINE AMINOTRANSFERASE 18 Units/L (12-78); ALBUMIN 3.4 g/dL (3.4-5.0); ALKALINE PHOSPHATASE 53 Units/L (46-116); ASPARTATE AMINO TRANSFERASE 17 Units/L (15-37); BLOOD UREA NITROGEN 34 mg/dL (7-18); CALCIUM 8.4 mg/dL (8.5-10.1); CARBON DIOXIDE 32.5 mmol/L (21-32); CHLORIDE 103 mmol/L (98-107); CREATININE 1.94 mg/dL (0.70-1.30); SODIUM 141 mmol/L (136-145); TOTAL PROTEIN 6.7 g/dL (6.4-8.2); eGFR BLACK RACES 43 (>60); eGFR NON BLACK RACES 35 (>60)
--- NOTE | 2017-09-15 06:53 | RAD ---
HISTORY: Shortness of breath Study: Chest AP portable Comparison: 09/14/2017 Findings: The heart is enlarged. The aorta is ectatic in the arch likely dilated. No congestive heart failure i s noted. The lungs are hypo inflated. Large right pleural effusion obscures the lung markings in port ions of the right lung. The visualized left lung is clear. IMPRESSION: Cardiomegaly without congestive heart failure No change right pleural effusion No change hypo inflation Reported By:
[2017-09-15] MEDS: ALBUMIN HUMAN 25%- 100ML 100 ML IV SCH ×2 (10:05→22:17)
[2017-09-15] MEDS: LASIX IVP SCH ×2 (10:06→22:16)
[2017-09-15] MEDS: COLACE CAP 100 MG PO SCH ×2 (10:06→22:13)
[2017-09-15] MEDS: EFFEXOR XR 37.5 MG CAP PO SCH (10:06)
[2017-09-15] MEDS: TAB-A-VITE PO SCH (10:07)
[2017-09-15] MEDS: LOPRESSOR TAB 25 MG PO SCH ×2 (10:07→22:14)
[2017-09-15] MEDS: MOBIC TAB 15 MG PO SCH (10:07)
[2017-09-15] MEDS: MICRO K EXTEN CAP 10 MEQ PO SCH (10:07)
[2017-09-15] MEDS: PEPCID TAB 20 MG PO SCH (10:07)
[2017-09-15] MEDS: NORVASC TAB 10 MG PO SCH (10:07)
[2017-09-15] MEDS: LEVAQUIN PREMIX IV 250 MG 250 MG/50 ML BAG IV SCH (10:07)
[2017-09-15] MEDS: ZESTRIL TAB 5 MG PO SCH (10:08)
[2017-09-15] MEDS: PROTEIN HYDROLYS PO SCH ×2 (11:40→22:13)
[2017-09-15] MEDS: [UNRECOGNIZED DRUG - OTHER] PO SCH ×2 (11:40→22:13)
[2017-09-15] MEDS: AMINO ACIDS PO SCH ×2 (11:40→22:13)
[2017-09-15] MEDS: NS 250 ML IV 250 ML IV SCH (14:18)
[2017-09-15] MEDS: MILK OF MAGNESIA PO SCH ×2 (14:18→22:12)
[2017-09-15] MEDS: NEURONTIN CAP 300 MG PO SCH (22:14)
[2017-09-15] MEDS: MIRALAX POWDER (1 DOSE 17GM) PO SCH (22:16)
[2017-09-15] MEDS: ELDERTONIC + WINE PO SCH (22:21)
[2017-09-16] MEDS: DUONEB 0.5 MG/3 MG NEB SCH ×4 (01:49→12:08)
[2017-09-16] MEDS: NS 250 ML IV 250 ML IV SCH (03:38)
[2017-09-16 05:50] LABS: ALANINE AMINOTRANSFERASE 16 Units/L (12-78); ALBUMIN 3.6 g/dL (3.4-5.0); ALKALINE PHOSPHATASE 51 Units/L (46-116); ASPARTATE AMINO TRANSFERASE 20 Units/L (15-37); BLOOD UREA NITROGEN 38 mg/dL (7-18); CALCIUM 8.7 mg/dL (8.5-10.1); CARBON DIOXIDE 31.6 mmol/L (21-32); CHLORIDE 104 mmol/L (98-107); CREATININE 1.83 mg/dL (0.70-1.30); SODIUM 142 mmol/L (136-145); TOTAL PROTEIN 6.5 g/dL (6.4-8.2); eGFR BLACK RACES 46 (>60); eGFR NON BLACK RACES 38 (>60)
[2017-09-16 06:11] LABS: BASOPHILS % (AUTO) 0.6 % (0.2-1.0); EOSINOPHILS # (AUTO) 0.1 x10^3/uL (0.0-0.2); HEMATOCRIT 28.9 % (42.0-54.0); HEMOGLOBIN 9.7 g/dL (13.5-18.0); LYMPHOCYTES # (AUTO) 0.7 X10^3/uL (1.3-2.9); LYMPHOCYTES % (AUTO) 14.9 % (21.0-51.0); MEAN CORPUSCULAR HEMOGLOBIN 31.5 pg (27.0-34.0); MEAN CORPUSCULAR HGB CONC 33.7 g/dL (33.0-35.0); MEAN CORPUSCULAR VOLUME 93.4 fL (80.0-100.0); MEAN PLATELET VOLUME 8.7 fL (7.4-11.0); MONOCYTES # (AUTO) 0.8 x10^3/uL (0.3-0.8); MONOCYTES % (AUTO) 15.9 % (0.0-13.0); NEUTROPHILS # (AUTO) 3.2 x10^3/uL (2.2-4.8); NEUTROPHILS % (AUTO) 66.6 % (42.0-75.0); PLATELET COUNT 109 X10^3/uL (150.0-450.0); RED BLOOD COUNT 3.09 X10^6/uL (4.7-6.0); RED CELL DISTRIBUTION WIDTH 16.4 % (11.6-16.5); WHITE BLOOD COUNT 4.8 X10^3/uL (3.6-10.0)
--- NOTE | 2017-09-16 06:53 | RAD ---
Examination: Portable AP chest History: SOB Comparison 09/15/2017 Findings: Persistent cardiac enlargement and aortic dilatation. No change in the retrocardiac opacity , right-sided infiltrate or pleural fluid. No new abnormality is noted. Impression: No interval change since 1 day prior. Reported By:
[2017-09-16] MEDS: VOLTAREN 1 % GEL MULTI DOSE TUBE EXT SCH (07:00)
[2017-09-16] MEDS: EFFEXOR XR 37.5 MG CAP PO SCH (10:39)
[2017-09-16] MEDS: MILK OF MAGNESIA PO SCH (10:39)
[2017-09-16] MEDS: PEPCID TAB 20 MG PO SCH (10:39)
[2017-09-16] MEDS: LOPRESSOR TAB 25 MG PO SCH (10:39)
[2017-09-16] MEDS: COLACE CAP 100 MG PO SCH (10:39)
[2017-09-16] MEDS: NORVASC TAB 10 MG PO SCH (10:39)
[2017-09-16] MEDS: MICRO K EXTEN CAP 10 MEQ PO SCH (10:39)
[2017-09-16] MEDS: TAB-A-VITE PO SCH (10:39)
[2017-09-16] MEDS: MOBIC TAB 15 MG PO SCH (10:39)
[2017-09-16] MEDS: PROTEIN HYDROLYS PO SCH (10:40)
[2017-09-16] MEDS: AMINO ACIDS PO SCH (10:40)
[2017-09-16] MEDS: [UNRECOGNIZED DRUG - OTHER] PO SCH (10:40)
[2017-09-16] MEDS: ZESTRIL TAB 5 MG PO SCH (10:40)
[2017-09-16 11:37] VITALS: BP 152/88
[2017-09-16] MEDS: LEVAQUIN PREMIX IV 250 MG 250 MG/50 ML BAG IV SCH (11:39)
[2017-09-16] MEDS: LASIX IVP SCH (11:39)
[2017-09-16] MEDS: ALBUMIN HUMAN 25%- 100ML 100 ML IV SCH (11:39)
[2017-09-16] MEDS ORDERED: DULCOLAX SUPPOSITORY 10 MG RECTAL ONE (13:08)
--- NOTE | 2017-09-16 22:04 | PCM.PROG ---
Progress Note - Progress Note for Day of Date: 09/15/17 - Subjective Subjective: WAS ADMITTED ON 09/10/2017 FOR CONGESTIVE HEART FAILURE AND RIGHT UPPER AND LOWER LOBE PNEUMONIA. TODAY, HE IS LYING IN BED WITH EYES CLOSED. HE AWAKENS AND RESPONDS TO VERBAL STIMULI. HE CONTINUES WITH COUGH, SHORTNESS OF BREATH, TRACE EDEMA, AND SCROTAL EDEMA. BILATERAL LUNGS CONTINUE WITH SCATTERED WHEEZING. HIS VITAL SIGNS THIS MORNING ARE 98.1-71-20-97%-141/ 78. LABS WERE OBTAINED. ABNORMAL LAB VALUES INCLUDE THE FOLLOWING: RBC 3.17, HGB 9.9, HCT 28.9, CARBON DIOXIDE 32.5, BUN 34, CREATININE 1.94, CALCIUM 8.4. HE CONTINUES ON IV LEVAQUIN FOR GROWTH OF ENTEROBACTER AGGOMERANS IN SPUTUM. TODAYS CHEST XRAY REPORTS CARDIOMEGALY WITHOUT CONGESTIVE HEART FAILURE, LARGE RIGHT PLEURAL EFFUSION OBSCURING THE LUNG MARKINGS IN PORTIONS OF THE RIGHT LUNG. TODAY, WE WILL CONTINUE IV ANTIBIOTICS, NEB TX, AND CURRENT PLAN OF CARE. WE PLAN TO FOLLOW UP WITH AM LABS AND CHEST XRAY AND CONTINUE TO MONITOR PATIENT. IF PATIENT REMAINS STABLE TOMORROW, WE WILL PLAN FOR DISCHARGE BACK TO [facility]. - Past Medical Family Social History Past Med/Fam/Surg Hx: No changes since H&P Allergies: Allergies No Known Drug Allergies Allergy (Verified 06/18/17 13:47) - Review of Systems ROS: No change since H&P - Vital Signs and I&O's Vital Signs: Temperature 98.4 F Pulse Rate [Right Brachial] 74 Pulse Rate [Radial] 71 Pulse Rate 84 Respiratory Rate 18 Blood Pressure [Right Arm] 152/88 Blood Pressure [Left Arm] 134/82 Blood Pressure 131/66 O2 Sat by Pulse Oximetry 99 Intake and Output: Intake & Output 09/14/17 09/15/17 09/16/17 09/17/17 11:59 11:59 11:59 11:59 Intake Total 1290 1280 1100 Output Total 500 1250 2610 Balance 790 30 -1510 - Physical Exam Oriented: Normal Eyes: Normal. negative: Blurred Vision, Diplopia, Discharge, Pain, Redness, Photophobia, Other Ear: Normal. negative: Right, Left, Swelling, Ecchymosis, Hemotypanum, Abrasion , Laceration Nose: Normal. negative: Injected, Discharge, Blood, Other Throat: Normal Respiratory: Right, Generalized, Wheezes Cardiovascular: Edema (scrotum and bilateral lower extremities ) : Normal Auscultation: Bowel Sounds: Normal Palpation: Normal Tenderness: Normal. negative: Rebound, Guarding, Rigidity Skin: Normal Musculoskeletal: Normal Psychiatric: Normal Mood Description: Calm Affect: Normal Speech Pattern: Clear, Appropriate - Laboratory and Diagnostics Result Diagrams: 09/16/17 04:30 09/16/17 04:30 Labs: 09/11/17 15:14 Sputum - Expectorated Sputum Sputum Culture - Final Enterobacter Agglomerans 09/11/17 15:14 Sputum - Expectorated Sputum - Final Laboratory WBC 4.8 X10^3/uL (3.6-10.0) 09/16/17 04:30 RBC 3.09 X10^6/uL (4.7-6.0) L 09/16/17 04:30 Hgb 9.7 g/dL (13.5-18.0) L 09/16/17 04:30 Hct 28.9 % (42.0-54.0) L 09/16/17 04:30 MCV 93.4 fL (80.0-100.0) 09/16/17 04:30 MCH 31.5 pg (27.0-34.0) 09/16/17 04:30 MCHC 33.7 g/dL (33.0-35.0) 09/16/17 04:30 RDW 16.4 % (11.6-16.5) 09/16/17 04:30 Plt Count 109 X10^3/uL (150.0-450.0) L 09/16/17 04:30 Plt Count Comment Decreased (ADEQUATE) 09/13/17 04:20 MPV 8.7 fL (7.4-11.0) 09/16/17 04:30 Neut % 66.6 % (42.0-75.0) 09/16/17 04:30 Lymph % 14.9 % (21.0-51.0) L 09/16/17 04:30 Kinney % 15.9 % (0.0-13.0) H 09/16/17 04:30 Eos % 2.0 % (0.9-2.9) 09/16/17 04:30 Baso % 0.6 % (0.2-1.0) 09/16/17 04:30 Neut # 3.2 x10^3/uL (2.2-4.8) 09/16/17 04:30 Lymph # 0.7 X10^3/uL (1.3-2.9) L 09/16/17 04:30 Kinney # 0.8 x10^3/uL (0.3-0.8) 09/16/17 04:30 Eos # 0.1 x10^3/uL (0.0-0.2) 09/16/17 04:30 Baso # 0.0 X10^3/uL (0.0-0.1) 09/16/17 04:30 Absolute Nucleated RBC 0.1 /100WBC 09/16/17 04:30 Plt Morphology Comment Normal (NORMAL) 09/13/17 04:20 RBC Morphology Normal (NORMAL) 09/13/17 04:20 Sodium 142 mmol/L (136-145) 09/16/17 04:30 Corrected Sodium TNP 09/16/17 04:30 Potassium 4.4 mmol/L (3.5-5.1) 09/16/17 04:30 Chloride 104 mmol/L (98-107) 09/16/17 04:30 Carbon Dioxide 31.6 mmol/L (21-32) 09/16/17 04:30 BUN 38 mg/dL (7-18) H 09/16/17 04:30 Creatinine 1.83 mg/dL (0.70-1.30) H 09/16/17 04:30 Est GFR (MDRD) Af Amer 46 (>60) L 09/16/17 04:30 Est GFR (MDRD) Non-Af 38 (>60) L 09/16/17 04:30 Glucose 83 mg/dL (65-99) 09/16/17 04:30 POC Glucose (mg/dL) 155 mg/dL (65-99) H 09/12/17 16:54 Calcium 8.7 mg/dL (8.5-10.1) 09/16/17 04:30 Corrected Calcium TNP 09/16/17 04:30 Total Bilirubin 0.80 mg/dL (0.2-1.0) 09/16/17 04:30 AST 20 Units/L (15-37) 09/16/17 04:30 ALT 16 Units/L (12-78) 09/16/17 04:30 Alkaline Phosphatase 51 Units/L (46-116) 09/16/17 04:30 Creatine Kinase 162 Units/L (39-308) 09/11/17 08:54 CK-MB (CK-2) 2.5 ng/mL (0-4.0) 09/11/17 08:54 CK/CKMB % Calc 1.5 % (<4) 09/11/17 08:54 Troponin I < 0.02 ng/mL (0-1.5) 09/11/17 08:54 B-Natriuretic Peptide 2950 pg/mL (0-79) H* 09/12/17 04:20 Total Protein 6.5 g/dL (6.4-8.2) 09/16/17 04:30 Albumin 3.6 g/dL (3.4-5.0) 09/16/17 04:30 Globulin 2.9 g/dL (2.5-4.5) 09/16/17 04:30 Albumin/Globulin Ratio 1.2 Ratio (1.1-2.1) 09/16/17 04:30 Specimen Type Catherized urine 09/11/17 01:00 Urine Color Yellow (YELLOW) 09/11/17 01:00 Urine Appearance Slightly hazy (CLEAR) 09/11/17 01:00 Urine pH 5.0 (5.0 - 8.0) 09/11/17 01:00 Ur Specific Lejunior 1.015 (1.000-1.030) 09/11/17 01:00 Urine Protein 3+ (NEGATIVE) 09/11/17 01:00 Urine Glucose (UA) Negative (NEGATIVE) 09/11/17 01:00 Urine Ketones Negative (NEGATIVE) 09/11/17 01:00 Urine Occult Blood 5+ (NEGATIVE) 09/11/17 01:00 Urine Nitrite Negative (NEGATIVE) 09/11/17 01:00 Urine Bilirubin Negative (NEGATIVE) 09/11/17 01:00 Urine Urobilinogen Normal (NORMAL) 09/11/17 01:00 Ur Leukocyte Esterase Negative (NEGATIVE) 09/11/17 01:00 Urine RBC Tntc /HPF (NEGATIVE) 09/11/17 01:00 Urine WBC 0-1 /HPF (NEGATIVE) 09/11/17 01:00 Ur Squamous Epith Cells Rare /HPF (NEGATIVE) 09/11/17 01:00 Amorphous Sediment 3+ /HPF (NEGATIVE) 09/11/17 01:00 Urine Bacteria Negative /HPF (NEGATIVE) 09/11/17 01:00 Ur Culture Indicated? No/not indicated 09/11/17 01:00 - Plan (1) CHF (congestive heart failure) Status: Chronic Qualifiers: Congestive heart failure type: systolic Congestive heart failure chronicity : acute on chronic Qualified Code(s): I50.23 - Acute on chronic systolic ( congestive) heart failure Plan: lasix 40mg iv bid, supplemental oxygen, neb tx, continue to monitor labs and chest xray (2) Pneumonia Status: Acute Qualifiers: Pneumonia type: due to other aerobic Gram-negative bacteria Laterality: right Lung location: unspecified part of lung Qualified Code(s): J15.6 - Pneumonia due to other Gram-negative bacteria Plan: levaquin 250mg iv daily, supplemental oxygen, neb tx, continue to monitor labs and chest xray
== END 2017-09-16 14:05 | DRG 291 ==
LOC: OBSVTOIN 18:52 → MED/SURG 18:52
PROVIDERS: ADMIT Internal Medicine; ATTEND Internal Medicine
DX: I50.23 Acute on chronic systolic (congestive) heart failure (principal); J15.6 Pneumonia due to other Gram-negative bacteria; R60.0 Localized edema; M25.511 Pain in right shoulder; I51.7 Cardiomegaly; M13.89 Other specified arthritis, multiple sites; E11.65 Type 2 diabetes mellitus with hyperglycemia; I10 Essential (primary) hypertension; N50.89 Other specified disorders of the male genital organs; Z66 Do not resuscitate; R26.89 Other abnormalities of gait and mobility
CPT/HCPCS: 36415; 71045; 80053; 81001; 82550; 82553; 83880; 84484; 85025; 87070; 87077; 87186; 87205; 94640; 94760; A4216; A4222; P9047; J1940; J1956; J7620